=== PATIENT | male | born 1950 | race Caucasian/White ===

== ENCOUNTER → 2016-06-17 | Outpatient (CLI) | payer OTHER ==
[~2016-06-17] MED LIST: ASPI-461 PO; DILT240C48 PO; LOSA50TA6 PO
[2016-06-17 18:03] LABS: BASO % 0.2 %; BASO ABS # 0.02 K/uL (0-0.2); COMPLETE YES; EOS % 2.5 %; HEMATOCRIT 43.5 % (42-52); IG% 0.2 %; LYMPH % 21.3 %; MEAN CELL VOLUME 88.8 fL (80-100); MEAN CORPUSCULAR HEMOGLOBIN 30.8 pg (25-34); MEAN CORPUSCULAR HGB CONC 34.7 g/dl (32-36); MEAN PLATELET VOLUME 10.8 fL (7.4-10.4); MONO % 10.1 %; NEUT % 65.7 %; PLATELET COUNT 248 K/uL (130-400); WHITE BLOOD COUNT 8.94 K/uL (4.8-10.8)
[2016-06-17 18:36] LABS: ALT/SGPT 31 U/L (12-78); AST/SGOT 21 U/L (15-37); BLOOD UREA NITROGEN 21 mg/dl (7-18); BUN/CREATININE RATIO 16.1 (10-20); CALCIUM 8.9 mg/dl (8.5-10.1); CARBON DIOXIDE 28 mmol/L (21-32); CHLORIDE 107 mmol/L (98-107); GLUCOSE 100 mg/dl (70-99); POTASSIUM 3.9 mmol/L (3.5-5.1); SODIUM 142 mmol/L (136-145)
[2016-06-17 18:47] LABS: ALB/GLOB RATIO 1.1 (0.9-2); ALKALINE PHOSPHATASE 113 U/L (45-117); CHOLESTEROL 231 mg/dl (0-200); CHOLESTEROL/HDL RATIO 6.6; HDL CHOLESTEROL 35 mg/dl; LDL CHOLESTEROL CALCULATED 158 mg/dl; PROSTATE SPECIFIC ANTIGEN 0.416 ng/ml (0.000-4.000); TRIGLYCERIDES 191 mg/dl (0-150); VERY LOW DENSITY LIPOPROT CALC 38 mg/dl
== END | disposition home or self-care (01) ==
LOC: C.LABBC 13:42
PROVIDERS: ATTEND Physician Assistant Medical
DX: Z00.00 Encounter for general adult medical examination without abnormal findings (principal); I10 Essential (primary) hypertension

== ENCOUNTER → 2016-07-02 | Outpatient (CLI) | payer OTHER ==
--- NOTE | 2016-07-02 14:59 | DIAGNOSTIC IMAGING REPORT ---
RIGHT HIP STEROID INJECTION UNDER FLUOROSCOPIC GUIDANCE CLINICAL HISTORY: Degenerative joint disease. Steroid injection. PROCEDURE: The risks, benefits, and alternatives to the procedure were discussed with the patient. Written informed consent was obtained. The patient was placed supine on the fluoroscopy table, and a right hip injection was performed under fluoroscopic guidance. The area was prepped and draped in the usual sterile fashion. The skin and soft tissues anesthetized with local 1% lidocaine. The right hip joint was accessed utilizing a 22-gauge needle, and intra-articular positioning was confirmed by injecting a small volume of Optiray 300 under fluoroscopic guidance. Once intra-articular positioning was confirmed, the prescribed dosage of 2 cc of Celestone and 8 cc of 0.5% Marcaine was injected into the joint space. The procedure was well tolerated and without immediate complication. The patient left the department in satisfactory condition. FLUOROSCOPY TIME: 12 seconds. IMPRESSION: Successful steroid injection of the right hip under fluoroscopic guidance. Electronically signed by: Adryan George M.D. 07/02/2016 2:57 PM Dictated Date/Time: 07/02/2016 2:55 PM
== END | disposition home or self-care (01) ==
LOC: C.RADBC 13:37
PROVIDERS: ATTEND Orthopaedic Surgery
DX: M16.11 Unilateral primary osteoarthritis, right hip (principal)

== ENCOUNTER → 2016-09-11 | Outpatient (CLI) | payer OTHER ==
[2016-09-11 11:33] LABS: ESTIMATED AVERAGE GLUCOSE 126 mg/dl; HA1C FLAG Normal (Normal)
[2016-09-11 11:41] LABS: BLOOD UREA NITROGEN 19 mg/dl (7-18); GLUCOSE 116 mg/dl (70-99)
[2016-09-11 11:42] LABS: ALB/GLOB RATIO 1.1 (0.9-2); ALKALINE PHOSPHATASE 113 U/L (45-117); ALT/SGPT 35 U/L (12-78); AST/SGOT 21 U/L (15-37); CALCIUM 8.9 mg/dl (8.5-10.1); CARBON DIOXIDE 26 mmol/L (21-32); CHLORIDE 111 mmol/L (98-107); CHOLESTEROL 270 mg/dl (0-200); CHOLESTEROL/HDL RATIO 9.3; HDL CHOLESTEROL 29 mg/dl; LDL CHOLESTEROL CALCULATED 181 mg/dl; POTASSIUM 3.9 mmol/L (3.5-5.1); SODIUM 143 mmol/L (136-145); TRIGLYCERIDES 299 mg/dl (0-150); VERY LOW DENSITY LIPOPROT CALC 60 mg/dl
[2016-09-11 15:08] LABS: LYME DISEASE AB IGG NEG (NEG); LYME DISEASE AB IGM NEG (NEG)
== END | disposition home or self-care (01) ==
LOC: C.LABBC 07:21
PROVIDERS: ATTEND Physician Assistant Medical
DX: Z00.00 Encounter for general adult medical examination without abnormal findings (principal); R73.9 Hyperglycemia, unspecified; E78.5 Hyperlipidemia, unspecified

== ENCOUNTER → 2017-06-12 | Outpatient (CLI) | payer OTHER ==
[2017-06-12 11:22] LABS: ALBUMIN 3.9 gm/dl (3.4-5.0); ALT/SGPT 32 U/L (12-78); AST/SGOT 19 U/L (15-37); BLOOD UREA NITROGEN 18 mg/dl (7-18); CALCIUM 9.1 mg/dl (8.5-10.1); CARBON DIOXIDE 27 mmol/L (21-32); CHOLESTEROL 234 mg/dl (0-200); CREATININE 1.29 mg/dl (0.60-1.40); GLUCOSE 110 mg/dl (70-99); SODIUM 140 mmol/L (136-145)
[2017-06-12 11:30] LABS: ALKALINE PHOSPHATASE 107 U/L (45-117); LDL CHOLESTEROL CALCULATED 157 mg/dl; TOTAL PROTEIN 8.1 gm/dl (6.4-8.2)
[2017-06-12 11:56] LABS: HEMOGLOBIN A1C 5.8 % (4.5-5.6)
== END | disposition home or self-care (01) ==
LOC: C.LABBC 07:19
PROVIDERS: ATTEND Internal Medicine
DX: R73.9 Hyperglycemia, unspecified (principal); E78.5 Hyperlipidemia, unspecified; E78.6 Lipoprotein deficiency; E88.81 Metabolic syndrome and other insulin resistance; R00.0 Tachycardia, unspecified; I11.9 Hypertensive heart disease without heart failure

== ENCOUNTER 2019-07-14 16:46 | Observation (INO) ==
[2019-07-14] MEDS ORDERED: ONDANSETRON INJ 2 MG/ML 2 ML VIAL IV STA (17:10)
[2019-07-14] MEDS ORDERED: HYDROmorphone INJ 0.5 MG/0.5 ML SYR IV STA (17:10)
[2019-07-14] MEDS ORDERED: SODIUM CHLORIDE 0.9% 1000ML 1,000 ML IV SCH (17:15)
[2019-07-14 17:19] LABS: Appearance Urine Clear (Clear); Bilirubin Urine Negative (Negative); Blood Urine Negative (Negative); Color Urine Yellow; Glucose Urine UA Negative (Negative); Ketones Urine Negative (Negative); Leukocyte Esterase Urine Negative (Negative); Nitrite Urine Negative (Negative); Protein Urine Negative (Negative); Specific Gravity Urine 1.025 (1.000-1.030); Urobilinogen Urine Negative (Negative); pH Urine 6.5 (4.5-7.5)
[2019-07-14 18:02] LABS: Basophils # (auto) 0.01 K/uL (0-0.2); Basophils % (auto) 0.1 %; Eosinophils # (auto) 0.16 K/uL (0-0.5); Eosinophils % (auto) 1.1 %; Hematocrit (blood only) 43.3 % (42-52); Hemoglobin 14.7 g/dL (14.0-18.0); Immature Granulocytes # (auto) 0.04 K/uL (0.00-0.02); Immature Granulocytes % (auto) 0.3 %; Lymphocytes # (auto) 1.21 K/uL (1.2-3.4); Lymphocytes % (auto) 8.3 %; Mean Corpuscular Hemoglobin 30.2 pg (25-34); Mean Corpuscular Hgb Conc 33.9 g/dL (32-36); Mean Corpuscular Volume 88.9 fL (80-100); Mean Platelet Volume 9.8 fL (7.4-10.4); Monocytes # (auto) 1.39 K/uL (0.11-0.59); Monocytes % (auto) 9.6 %; Neutrophils % (auto) 80.6 %; Platelet Count 240 K/uL (130-400); RDW Coefficient of Variation 13.7 % (11.5-14.5); RDW Standard Deviation 44.2 fL (36.4-46.3); Red Blood Count 4.87 M/uL (4.7-6.1); White Blood Count 14.51 K/uL (4.8-10.8)
[2019-07-14 18:20] LABS: Albumin Level 3.8 gm/dl (3.4-5.0); BUN Creatinine Ratio 10.7 (10-20); Calcium 9.1 mg/dl (8.5-10.1); Creatinine Clr Calc Pharmacy 38.8 ml/min; Est GFR (Non-African American) 33.7; Potassium 3.8 mmol/L (3.5-5.1)
[2019-07-14 18:22] LABS: Bilirubin,Total 0.4 mg/dl (0.2-1); Total Protein 7.8 gm/dl (6.4-8.2)
--- NOTE | 2019-07-14 18:30 | XRay Report ---
KUB HISTORY: Follow up study in a patient with right ureteral calculus R URETERAL STONE COMPARISON: CT abdomen and pelvis 07/13/2019 FINDINGS: The bowel gas pattern is non-obstructive. There is no organomegaly. Renal shadows are obsc ured by bowel gas. Previously noted punctate right nephrolithiasis not identified. Additionally, the previously noted 4 mm calculus of the right ureterovesicular junction is not definitively seen. No pn eumoperitoneum or pneumatosis. Right hip total joint arthroplasty. Degenerative changes of the left h ip and spine. No fracture. IMPRESSION: Limited study secondary to obscuring bowel gas. The previously noted right nephrolithiasis and distal right ureteral calculus are not identified. ACT 112: Negative or not required by law. The above report was generated using voice recognition software. It may contain grammatical, syntax o r spelling errors. Electronically signed by: Sean Chow M.D. 07/14/2019 6:29 PM
--- NOTE | 2019-07-14 19:45 | History & Physical Report ---
Date of Service July 14, 2019 Assessment & Plan (1) Right kidney stone: Patient presents with pain similar to renal colic experienced yesterday. Pain is in the same location as before. Also with nausea, increase in leukocytosis, BUN and Cr. KUB performed and do not clearly see the stone, however, suspect that it is still present and causing symptoms. UA does not suggest infection -Observation to medical floor -IVF, Zofran and Dilaudid PRN -Flomax 0.4mg po daily -Strain urine -IVF -Urology consultation - possible lithotripsy in AM, will keep patient NPO Present on Admission?: Yes (2) JAREK (acute kidney injury): BUN=21, Cr=1.94 from 20 and 1.33, respectively. Patient reports adequate UOP, electrolytes are within normal limits. -NSS at 125mL/hr x 2 L -Repeat BMP in AM -Avoid nephrotoxic agents, renal dosing where needed Present on Admission?: Yes (3) Acid reflux disease with ulcer: Chronic. Stable -Continue Protonix 40mg po daily Present on Admission?: Yes (4) Dyslipidemia: Chronic. Stable -Continue Crestor 5mg po daily Present on Admission?: Yes (5) HTN (hypertension): Chronic. Stable, XV=135/74 currently -Continue Metoprolol and Diltiazem -Hold Telmisartan for now -Continue to monitor F/E/N - NSS at 125mL/hr x 2 liters, monitor electrolytes and replete as needed, Heart healthy diet as tolerated, NPO after midnight for possible lithotripsy in AM Ppx- SCDs Code - Full Dispo - Observation to medical floor Present on Admission?: Yes Admission and Anticipated Discharge Date Admission Date: 07/14/19 Anticipated date of discharge: 07/15/19 History of Present Illness Chief Complaint: Abdominal pain Primary Care Provider: Curt Oquendo MD Patient is a 69yo C male with history of HTN/HLP/CKD/GERD. He was seen in the ER yesterday with complaint of right lower quadrant abdominal pain, found to have a 4mm obstructing calculus at the right vesicoureteral junction with mild to moderate right hydroureteronephrosis. Patient was given NSS, Dilaudid and Zofran, Toradol and Flexeril with resolution of symptoms therefore he was discharged home. Patient felt well throughout the night, however, this morning he had a recurrence of his pain. Severe, 8-9/10 in the RLQ. He also has some mild nausea and a headache. No fevers/chills/dysuria/back pain. No diarrhea/CP/cough/SOB. No additional complaints at this time. ER Course: DIlaudid, Zofran, NSS Allergies Allergy/AdvReac Type Severity Reaction Status Date / Time No Known Allergies Allergy Verified 07/14/19 17:31 Home Medications Home Medications Medication Instructions Recorded Confirmed Type aspirin 81 mg tablet,delayed 81 mg PO DAILY #30 tab 09/01/18 07/14/19 Rx release metoprolol succinate 25 mg 25 mg PO DAILY #90 tab 09/01/18 07/14/19 Rx tablet,extended release 24 hr pantoprazole 40 mg tablet,delayed 40 mg PO DAILY #30 tab 09/01/18 07/14/19 Rx release amoxicillin 500 mg capsule 2,000 mg PO DIRECTED PRN cap 01/05/19 07/14/19 History diltiazem HCl 300 mg 300 mg PO DAILY #90 cap 03/21/19 07/14/19 Rx capsule,extended release 24 hr rosuvastatin 5 mg tablet 5 mg PO DAILY #90 tab 07/12/19 07/14/19 Rx telmisartan 80 mg PO DAILY 07/13/19 07/14/19 History Past Med/Surg History Social History Preferred Language: Slovenian Communication Ability: Effective Visual Impairment: No Limitations Hearing Ability: Normal Anesthetic Assistant Required: No marital status: Current Living Situation: Spouse current occupational status: retired Feels Safe at Home: Yes Smoking Status: Never smoker Hx Alcohol Use: Yes Alcohol type: beer and wine Alcohol Intake Frequency: Holidays/Special Occasions Hx Substance Use: No Childhood Exposure to Second-Hand Smoke: No Dental Care, Regularly: Yes Physical Activity Frequency: Daily Seatbelt Use: always Sunscreen Use: Yes Review of Systems Review of Systems: All systems reviewed & are unremarkable except as noted in HPI & below Physical Exam Physical Exam: General: patient resting comfortably, NAD, non-toxic in appear ance, AA&O x 4 Skin: warm, dry, intact, no rashes or lesions HEENT: NC/AT, PERRL, EOMI, anicteric sclera, conjunctiva without injection, external ear normal to inspection and nontender, nares patent, moist mucus membranes, dentition intact, no oropharyngeal lesions, neck supple, trachea midline, no LAD, no thyromegaly, no JVD Heart: +S1/S2, regular, no m/r/g Lungs: equal air entry bilaterally, no rales/rhonchi/wheezes Abd: +BS, soft, NT/ND, no masses/organomegaly/ascites Ext: warm, 2+ pulses in UE/LE bilaterally, no clubbing/cyanosis or edema Neuro: nonfocal, patient AA&O x 4, speech intact, no facial droop, moving all extremities on command with equal strength 5/5 Results & Data Results & Data ([facility]) Vital Signs (Past 12 Hours) Vital Signs Temp Pulse Resp BP Pulse Ox 07/14/19 19:30 81 18 128/96 96 07/14/19 19:00 85 18 136/75 95 07/14/19 18:30 79 21 137/75 93 07/14/19 18:00 85 20 151/74 H 93 07/14/19 17:38 75 15 150/88 H 95 07/14/19 17:20 92 07/14/19 16:51 36.9 C 92 H 18 149/87 H 97 Laboratory Results Lab Results 07/14/19 07/14/19 07/14/19 Range/Units 17:02 17:41 17:41 WBC 14.51 H (4.8-10.8) K/uL RBC 4.87 (4.7-6.1) M/uL Hgb 14.7 (14.0-18.0) g/dL Hct 43.3 (42-52) % MCV 88.9 (80-100) fL MCH 30.2 (25-34) pg MCHC 33.9 (32-36) g/dL RDW Std Deviation 44.2 (36.4-46.3) fL RDW Coeff of [place] 13.7 (11.5-14.5) % Plt Count 240 (130-400) K/uL MPV 9.8 (7.4-10.4) fL Immature Gran % (Auto) 0.3 % Neut % (Auto) 80.6 % Lymph % (Auto) 8.3 % [place] % (Auto) 9.6 % Eos % (Auto) 1.1 % Baso % (Auto) 0.1 % Immature Gran # (Auto) 0.04 H (0.00-0.02) K/uL Neut # (Auto) 11.70 H (1.4-6.5) K/uL Lymph # (Auto) 1.21 (1.2-3.4) K/uL [place] # (Auto) 1.39 H (0.11-0.59) K/uL Eos # (Auto) 0.16 (0-0.5) K/uL Baso # (Auto) 0.01 (0-0.2) K/uL Sodium 137 (136-145) mmol/L Potassium 3.8 (3.5-5.1) mmol/L Chloride 109 H (98-107) mmol/L Carbon Dioxide 25 (21-32) mmol/L Anion Gap 3.0 (3-11) BUN 21 H (7-18) mg/dl Creatinine 1.96 H D (0.6-1.4) mg/dl Est Cr Clr Drug Dosing 38.8 ml/min Est GFR ( Amer) 39.0 Est GFR (Non-Af Amer) 33.7 BUN/Creatinine Ratio 10.7 (10-20) Glucose 102 H (70-99) mg/dl Calcium 9.1 (8.5-10.1) mg/dl Total Bilirubin 0.4 (0.2-1) mg/dl AST 21 (15-37) U/L ALT 32 (12-78) U/L Alkaline Phosphatase 112 (45-117) U/L Total Protein 7.8 (6.4-8.2) gm/dl Albumin 3.8 (3.4-5.0) gm/dl Globulin 4.0 (2.5-4.0) gm/dl Albumin/Globulin Ratio 1.0 (0.9-2) Lipase 109 (73-393) U/L Urine Color Yellow Urine Appearance Clear (Clear) Urine pH 6.5 (4.5-7.5) Ur Specific [place] 1.025 (1.000-1.030) Urine Protein Negative (Negative) Urine Glucose (UA) Negative (Negative) Urine Ketones Negative (Negative) Urine Blood Negative (Negative) Urine Nitrite Negative (Negative) Urine Bilirubin Negative (Negative) Urine Urobilinogen Negative (Negative) Ur Leukocyte Esterase Negative (Negative) Diagnostic Findings KUB HISTORY: Follow up study in a patient with right ureteral calculus R URETERAL STONE COMPARISON: CT abdomen and pelvis 07/13/2019 FINDINGS: The bowel gas pattern is non-obstructive. There is no organomegaly. Renal shadows are obscured by bowel gas. Previously noted punctate right nephrolithiasis not identified. Additionally, the previously noted 4 mm calculus of the right ureterovesicular junction is not definitively seen. No pneumoperitoneum or pneumatosis. Right hip total joint arthroplasty. Degenerative changes of the left hip and spine. No fracture. IMPRESSION: Limited study secondary to obscuring bowel gas. The previously noted right nephrolithiasis and distal right ureteral calculus are not identified. ACT 112: Negative or not required by law. The above report was generated using voice recognition software. It may contain grammatical, syntax or spelling errors. Electronically signed by: Sean Chow M.D. 07/14/2019 6:29 PM Dictated: 07/14/[id number] Transcribed: 07/14/191826 CT SCAN OF THE ABDOMEN AND PELVIS WITH IV CONTRAST - STUDY DONE ON 4/22/20 CLINICAL HISTORY: Right lower quadrant abdominal pain. COMPARISON STUDY: Abdominal CT dated 09/29/2011. TECHNIQUE: Following the IV administration of 93 cc of Optiray 320, CT scan of the abdomen and pelvis is performed from the lung bases to the proximal femora. Images are reviewed in the axial, sagittal, and coronal planes. IV contrast was administered without complication. A dose lowering technique was utilized adhering to the principles of ALARA. CT DOSE: 958.68 mGycm FINDINGS: Lung bases: The heart is mildly enlarged and without pericardial effusion. There are coronary artery calcifications. A tiny hiatal hernia is noted. The lung bases are clear. Liver: The contrast-enhanced liver is normal in size, contour, and attenuation. There is no intrahepatic biliary ductal dilatation. The hepatic veins and portal veins are patent. Gallbladder: Unremarkable. Spleen: Normal in size and attenuation. Pancreas: Unremarkable. Adrenal glands: Unremarkable. Kidneys: The contrast enhanced kidneys demonstrate cortical atrophy. The right kidney is mildly edematous and there is perinephric stranding. There is a 4 mm obstructing calculus at the right vesicoureteral junction seen on image #406. This causes mild to moderate right hydroureteronephrosis. There are at least 3 additional nonobstructing right renal calculi which measure up to 3 mm. There are least 2 nonobstructing calculi in the left upper pole measuring up to 6 mm. No hydronephrosis is seen on the left. Cortical enhancement the right kidney is slightly heterogeneous, likely secondary to hydronephrosis. Parapelvic cysts in the left kidney measure up to 3.1 cm. Abdominal vasculature: There is moderate to advanced atherosclerotic calcification and mild ectasia of the abdominal aorta. Bowel: There is no bowel obstruction. There is moderate colonic diverticulosis without CT evidence of acute diverticulitis. Mild fecal retention is seen throughout the colon there is a large duodenal diverticulum. The appendix is well-visualized and normal. Peritoneum: There is no intraperitoneal free air or abdominal ascites. Lymphadenopathy: None. Pelvic viscera: Evaluation of the pelvis is degraded by streak artifact from a right hip arthroplasty. The prostate gland is enlarged and heterogeneous noting median lobe hypertrophy. The bladder wall is thickened and trabeculated indicating chronic outlet obstruction. There is a fat-containing left inguinal hernia. Findings suggest previous right inguinal herniorrhaphy. Skeletal structures: The skeletal structures are osteopenic. Mild lumbosacral spondylosis is observed. There are bilateral pars defects with advanced disc space narrowing and 9 mm anterolisthesis at L5-S1. No lytic or blastic lesions are seen. A right hip arthroplasty is in place. IMPRESSION: 1. There is a 4 mm obstructing calculus at the right vesicoureteral junction. Th is causes mild to moderate right hydroureteronephrosis. 2. There is heterogeneous enhancement of the right kidney, likely related to obstruction/hydronephrosis. Correlate clinically and with urinalysis for evidence of superimposed infection. 3. Additional bilateral nonobstructing renal calculi as above. 4. Moderate colonic diverticulosis without CT evidence of acute diverticulitis. 5. Fat-containing left inguinal hernia. 6. Additional findings as above. ACT 112: Negative or not required by law. Electronically signed by: Adryan George M.D. 07/13/2019 5:30 PM Dictated: 07/13/19 172 Transcribed: 07/13/191721 Code Status & VTE Plan Code Status FULL VTE Prophylaxis Plan VTE Prophylaxis will be ordered: Yes PG Care Time/CCT Total # of Minutes Spent Total Time Spent with Patient: Total time spent is greater than 50% in coordination of care (as documented) at patient's floor/unit and/or counseling patient: Coding Level of Care Code 76187 OBS Care - Level 3 Diagnoses Right kidney stone N20.0 JAREK (acute kidney injury) N17.9 Acid reflux disease with ulcer K21.9 Dyslipidemia E78.5 HTN (hypertension) I10 Hypertension type: essential hypertension (1) HTN (hypertension) Hypertension type: essential hypertension Qualified Code(s): I10 - Essential (primary) hypertension
[2019-07-14] MEDS ORDERED: DOCUSATE SODIUM 100 MG CAP PO PRN (20:32)
[2019-07-14] MEDS ORDERED: ONDANSETRON INJ 2 MG/ML 2 ML VIAL IV PRN (20:32)
[2019-07-14] MEDS ORDERED: HYDROmorphone INJ 0.5 MG/0.5 ML SYR IV PRN (20:32)
[2019-07-14] MEDS ORDERED: TAMSULOSIN HCL 0.4 MG CAP PO ONE (20:32)
[2019-07-14] MEDS ORDERED: ACETAMINOPHEN 325 MG TAB PO PRN (20:32)
[2019-07-14 20:48] LABS: Magnesium 2.3 mg/dl (1.8-2.4)
[2019-07-14] MEDS: SODIUM CHLORIDE 0.9% 1000ML 1,000 ML IV SCH (21:23)
--- NOTE | 2019-07-15 00:28 | Emergency Department Note ---
History of Present Illness General Chief complaint: Kidney Stone Stated complaint: KIDNEY STONES, HERE YESTERDAY Source: patient Mode of arrival: ambulatory Limitations: no limitations History of Present Illness Provider complaint: Right-sided abdominal pain Onset (ago): day(s) 2 Location: abdomen Radiation: back Severity: moderate Pain Consistency: + colicky Maximum Pain Intensity: 3 Exacerbated By: + none This patient is a 69-year-old male who presents to the emergency department with complaints of right lower quadrant abdominal pain. The patient was evaluated in the emergency department yesterday and found to have a 4 mm distal right ureteral calculus. Patient's symptoms greatly improved after IV fluids and analgesia. UA was negative. Patient was discharged and was using Tylenol and ibuprofen for pain management. Patient spoke with his PCP today who advised an appointment with urology may be in the distant future due to the COVID pandemic. Patient states the pain was manageable for most of the day until later this evening. The Tylenol and ibuprofen were no longer controlling his symptoms. He denies any fever and states he has been nauseated for most of the day. Home Medications Home Medications Medication Instructions Recorded Confirmed Type aspirin 81 mg tablet,delayed 81 mg PO DAILY #30 tab 09/01/18 07/14/19 Rx release metoprolol succinate 25 mg 25 mg PO DAILY #90 tab 09/01/18 07/14/19 Rx tablet,extended release 24 hr pantoprazole 40 mg tablet,delayed 40 mg PO DAILY #30 tab 09/01/18 07/14/19 Rx release amoxicillin 500 mg capsule 2,000 mg PO DIRECTED PRN cap 01/05/19 07/14/19 History diltiazem HCl 300 mg 300 mg PO DAILY #90 cap 03/21/19 07/14/19 Rx capsule,extended release 24 hr rosuvastatin 5 mg tablet 5 mg PO DAILY #90 tab 07/12/19 07/14/19 Rx telmisartan 80 mg PO DAILY 07/13/19 07/14/19 History Allergies Allergy/AdvReac Type Severity Reaction Status Date / Time No Known Allergies Allergy Verified 07/14/19 17:31 Past Med/Surg History Medical History Acid reflux disease with ulcer (Chronic) CKD (chronic kidney disease) (Chronic) Dyslipidemia (Chronic) HTN (hypertension) (Chronic) Hyperglycemia (Chronic) Low HDL (under 40) (Chronic) LVH (left ventricular hypertrophy) (Chronic) Metabolic syndrome (Chronic) Surgical History H/O inguinal hernia repair History of arthroplasty of right hip Family History Mother Cancer Social History Preferred Language: Korean Communication Ability: Effective Visual Impairment: No Limitations Hearing Ability: Normal Redipper Required: No Beliefs That Will Affect Care: None marital status: Current Living Situation: Spouse current occupational status: retired Other Information That Helps Us Care for You: No Feels Safe at Home: Yes Safety Concerns: Feels Safe At This Time Smoking Status: Never smoker Do You Dip or Chew Tobacco: No ; Hx Alcohol Use: Yes Alcohol type: beer and wine Alcohol Intake Frequency: Holidays/Special Occasions Hx Substance Use: No Childhood Exposure to Second-Hand Smoke: No Dental Care, Regularly: Yes Physical Activity Frequency: Daily Seatbelt Use: always Sunscreen Use: Yes Review of Systems See HPI for pertinent positives & negatives. and A total of 10 systems reviewed and were otherwise negative Physical Exam Vital Signs Vital Signs - 24 hr 07/14/19 16:51 07/14/19 17:20 07/14/19 17:38 Temperature 36.9 C Temperature Source Oral Pulse Rate 92 H 75 Pulse Rate from SpO2 Sensor Respiratory Rate 18 15 Respiratory Effort / Characteristics Non-Labored Respiratory Depth Normal Blood Pressure 149/87 H 150/88 H Blood Pressure Mean 107 109 Pulse Oximetry 97 92 95 Oxygen Delivery Method Room Air Room Air Sepsis Recent Fever Within 48 Hours No Sepsis New/Unexplained Change in Mental Status No Sepsis Action Taken by Nursing No Action Required 07/14/19 18:00 07/14/19 18:30 07/14/19 19:00 Temperature Temperature Source Pulse Rate 85 79 85 Pulse Rate from SpO2 Sensor 84 Respiratory Rate 20 21 18 Respiratory Effort / Characteristics Respiratory Depth Blood Pressure 151/74 H 137/75 136/75 Blood Pressure Mean 96 96 93 Pulse Oximetry 93 93 95 Oxygen Delivery Method Sepsis Recent Fever Within 48 Hours Sepsis New/Unexplained Change in Mental Status Sepsis Action Taken by Nursing 07/14/19 19:30 Temperature Temperature Source Pulse Rate 81 Pulse Rate from SpO2 Sensor Respiratory Rate 18 Respiratory Effort / Characteristics Respiratory Depth Blood Pressure 128/96 Blood Pressure Mean 98 Pulse Oximetry 96 Oxygen Delivery Method Sepsis Recent Fever Within 48 Hours Sepsis New/Unexplained Change in Mental Status Sepsis Action Taken by Nursing Vital signs reviewed. General: Well-appearing 69-year-old male, in no significant distress. HEENT: No scleral icterus, PERRLA, neck supple. Atraumatic. Cardiovascular: Regular rate and rhythm, no extra sounds. Pulmonary: Clear to auscultation bilaterally, normal work of breathing. Abdomen: Soft, tender to palpation of the right mid abdomen, nondistended, positive bowel sounds. Musculoskeletal: Atraumatic, no peripheral edema. Neurologic: Patient awake alert and oriented x 3 Skin: Warm, dry, no rash Course Administered Medications Sodium Chloride (Nss 1000ml) 1,000 mls @ 125 mls/hr IV .Q8H ROSE MARIE Stop: 07/15/19 12:31 Last Infusion: 07/14/19 22:08 Dose: 125 mls/hr Documented by: [id number] Admin: 07/14/19 21:23 Dose: 125 mls/hr Documented by: [id number] Discontinued Medications Hydromorphone HCl (Dilaudid) 0.5 mg IV NOW STA Stop: 07/14/19 17:11 Last Admin: 07/14/19 17:33 Dose: 0.5 mg Documented by: [id number] Sodium Chloride (Nss 1000ml) 1,000 mls @ 999 mls/hr IV .Q1H1M ROSE MARIE Stop: 07/14/19 18:15 Last Infusion: 07/14/19 18:29 Dose: 0 mls/hr Documented by: [id number] Admin: 07/14/19 17:30 Dose: 999 mls/hr Documented by: [id number] Ondansetron HCl (Zofran) 4 mg IV NOW STA Stop: 07/14/19 17:11 Last Admin: 07/14/19 17:34 Dose: 4 mg Documented by: [id number] Tamsulosin HCl (Flomax) 0.4 mg PO NOW ONE Stop: 07/14/19 20:33 Last Admin: 07/14/19 21:22 Dose: 0.4 mg Documented by: [id number] Medical Decision Making Differential Diagnosis Differential diagnosis: Etiologies such as shingles, pyelonephritis/UTI, renal colic, appendicitis, diverticulitis, mesenteric ischemia, torsion, aortic pathology, infections, inflammatory bowel disease, bowel obstruction, PUD, biliary pathology, as well as others were entertained. Medical Records Attestation: I reviewed the patient's medical records. Home Medications Current Medication List: was personally reviewed by me Laboratory Data Attestation: I reviewed the patient's lab results. Result diagrams: 07/14/19 17:41 07/14/19 17:41 Lab Results 07/14/19 07/14/19 07/14/19 Range/Units 17:02 17:41 17:41 WBC 14.51 H (4.8-10.8) K/uL RBC 4.87 (4.7-6.1) M/uL Hgb 14.7 (14.0-18.0) g/dL Hct 43.3 (42-52) % MCV 88.9 (80-100) fL MCH 30.2 (25-34) pg MCHC 33.9 (32-36) g/dL RDW Std Deviation 44.2 (36.4-46.3) fL RDW Coeff of Augustus 13.7 (11.5-14.5) % Plt Count 240 (130-400) K/uL MPV 9.8 (7.4-10.4) fL Immature Gran % (Auto) 0.3 % Neut % (Auto) 80.6 % Lymph % (Auto) 8.3 % Rush % (Auto) 9.6 % Eos % (Auto) 1.1 % Baso % (Auto) 0.1 % Immature Gran # (Auto) 0.04 H (0.00-0.02) K/uL Neut # (Auto) 11.70 H (1.4-6.5) K/uL Lymph # (Auto) 1.21 (1.2-3.4) K/uL Rush # (Auto) 1.39 H (0.11-0.59) K/uL Eos # (Auto) 0.16 (0-0.5) K/uL Baso # (Auto) 0.01 (0-0.2) K/uL Sodium 137 (136-145) mmol/L Potassium 3.8 (3.5-5.1) mmol/L Chloride 109 H (98-107) mmol/L Carbon Dioxide 25 (21-32) mmol/L Anion Gap 3.0 (3-11) BUN 21 H (7-18) mg/dl Creatinine 1.96 H D (0.6-1.4) mg/dl Est Cr Clr Drug Dosing 38.8 ml/min Est GFR ( Amer) 39.0 Est GFR (Non-Af Amer) 33.7 BUN/Creatinine Ratio 10.7 (10-20) Glucose 102 H (70-99) mg/dl Calcium 9.1 (8.5-10.1) mg/dl Phosphorus (2.5-4.9) mg/dl Magnesium (1.8-2.4) mg/dl Total Bilirubin 0.4 (0.2-1) mg/dl AST 21 (15-37) U/L ALT 32 (12-78) U/L Alkaline Phosphatase 112 (45-117) U/L Total Protein 7.8 (6.4-8.2) gm/dl Albumin 3.8 (3.4-5.0) gm/dl Globulin 4.0 (2.5-4.0) gm/dl Albumin/Globulin Ratio 1.0 (0.9-2) Lipase 109 (73-393) U/L Urine Color Yellow Urine Appearance Clear (Clear) Urine pH 6.5 (4.5-7.5) Ur Specific [place] 1.025 (1.000-1.030) Urine Protein Negative (Negative) Urine Glucose (UA) Negative (Negative) Urine Ketones Negative (Negative) Urine Blood Negative (Negative) Urine Nitrite Negative (Negative) Urine Bilirubin Negative (Negative) Urine Urobilinogen Negative (Negative) Ur Leukocyte Esterase Negative (Negative) 07/14/19 Range/Units 17:41 WBC (4.8-10.8) K/uL RBC (4.7-6.1) M/uL Hgb (14.0-18.0) g/dL Hct (42-52) % MCV (80-100) fL MCH (25-34) pg MCHC (32-36) g/dL RDW Std Deviation (36.4-46.3) fL RDW Coeff of Augustus (11.5-14.5) % Plt Count (130-400) K/uL MPV (7.4-10.4) fL Immature Gran % (Auto) % Neut % (Auto) % Lymph % (Auto) % Rush % (Auto) % Eos % (Auto) % Baso % (Auto) % Immature Gran # (Auto) (0.00-0.02) K/uL Neut # (Auto) (1.4-6.5) K/uL Lymph # (Auto) (1.2-3.4) K/uL Rush # (Auto) (0.11-0.59) K/uL Eos # (Auto) (0-0.5) K/uL Baso # (Auto) (0-0.2) K/uL Sodium (136-145) mmol/L Potassium (3.5-5.1) mmol/L Chloride (98-107) mmol/L Carbon Dioxide (21-32) mmol/L Anion Gap (3-11) BUN (7-18) mg/dl Creatinine (0.6-1.4) mg/dl Est Cr Clr Drug Dosing ml/min Est GFR ( Amer) Est GFR (Non-Af Amer) BUN/Creatinine Ratio (10-20) Glucose (70-99) mg/dl Calcium (8.5-10.1) mg/dl Phosphorus 3.0 (2.5-4.9) mg/dl Magnesium 2.3 (1.8-2.4) mg/dl Total Bilirubin (0.2-1) mg/dl AST (15-37) U/L ALT (12-78) U/L Alkaline Phosphatase (45-117) U/L Total Protein (6.4-8.2) gm/dl Albumin (3.4-5.0) gm/dl Globulin (2.5-4.0) gm/dl Albumin/Globulin Ratio (0.9-2) Lipase (73-393) U/L Urine Color Urine Appearance (Clear) Urine pH (4.5-7.5) Ur Specific [place] (1.000-1.030) Urine Protein (Negative) Urine Glucose (UA) (Negative) Urine Ketones (Negative) Urine Blood (Negative) Urine Nitrite (Negative) Urine Bilirubin (Negative) Urine Urobilinogen (Negative) Ur Leukocyte Esterase (Negative) Imaging Data Radiologist's Impression: KUB HISTORY: Follow up study in a patient with right ureteral calculus R URETERAL STONE COMPARISON: CT abdomen and pelvis 07/13/2019 FINDINGS: The bowel gas pattern is non-obstructive. There is no organomegaly. Renal shadows are obscured by bowel gas. Previously noted punctate right n ephrolithiasis not identified. Additionally, the previously noted 4 mm calculus of the right ureterovesicular junction is not definitively seen. No pneumoperitoneum or pneumatosis. Right hip total joint arthroplasty. Degenerative changes of the left hip and spine. No fracture. IMPRESSION: Limited study secondary to obscuring bowel gas. The previously noted right nephrolithiasis and distal right ureteral calculus are not identified. ACT 112: Negative or not required by law. The above report was generated using voice recognition software. It may contain grammatical, syntax or spelling errors. Electronically signed by: Sean Chow M.D. 07/14/2019 6:29 PM Dictated: 07/14/191826 Transcribed: 07/14/191826 Blood Pressure Blood Pressure Findings: Normal blood pressure Blood Pressure Disposition: Referred to patients primary care provider MDM Narrative An order for cardiac monitoring was placed and the patient is found to be in a normal sinus rhythm at 75 bpm. This patient was evaluated and appeared to be in no significant distress. IV access was obtained and laboratory work was drawn. Patient was hydrated with normal saline solution, given IV Dilaudid, IV Zofran for his discomfort. KUB was performed and the ureteral calculus is not visualized. Patient's laboratory work reveals a leukocytosis at 14.5 with a creatinine of 1.96 which is elevated when compared to just 24 hours ago. The patient does remain afebrile and the UA is clear. Given the failure of outpatient management and the difficulty in establishing follow-up, the patient will be evaluated by the hospitalist service for further management. Dr. Reynolds of the urology service was consulted as the patient prefers to be evaluated by the [facility] physician group. [facility] was consulted for further management. Impression & Plan Calculus of distal right ureter, Intractable abdominal pain, Acute kidney insufficiency Discharge Plan Visit Data *Final* Discharge Date/Time: 07/14/19 20:09 Chief Complaint: Kidney Stone Stated Complaint: KIDNEY STONES, HERE YESTERDAY ED Provider: Jamee Lubin Discharge Problem: Calculus of distal right ureter, Intractable abdominal pain, Acute kidney insufficiency Patient Disposition: Admitted As Inpatient Discharge Instructions Interventions: ED Discharge Assessment Last Done: 07/14/19 20:09
[2019-07-15] MEDS: SODIUM CHLORIDE 0.9% 1000ML 1,000 ML IV SCH (05:07)
[2019-07-15 06:09] LABS: Basophils # (auto) 0.01 K/uL (0-0.2); Basophils % (auto) 0.1 %; Eosinophils # (auto) 0.04 K/uL (0-0.5); Eosinophils % (auto) 0.3 %; Hematocrit (blood only) 37.8 % (42-52); Hemoglobin 12.9 g/dL (14.0-18.0); Immature Granulocytes # (auto) 0.03 K/uL (0.00-0.02); Immature Granulocytes % (auto) 0.2 %; Lymphocytes # (auto) 1.58 K/uL (1.2-3.4); Lymphocytes % (auto) 12.1 %; Mean Corpuscular Hemoglobin 30.7 pg (25-34); Mean Corpuscular Hgb Conc 34.1 g/dL (32-36); Mean Platelet Volume 9.8 fL (7.4-10.4); Monocytes # (auto) 1.53 K/uL (0.11-0.59); Monocytes % (auto) 11.7 %; Neutrophils # (auto) 9.88 K/uL (1.4-6.5); Neutrophils % (auto) 75.6 %; Platelet Count 209 K/uL (130-400); RDW Coefficient of Variation 13.7 % (11.5-14.5); RDW Standard Deviation 45.3 fL (36.4-46.3); White Blood Count 13.07 K/uL (4.8-10.8)
[2019-07-15 06:41] LABS: BUN Creatinine Ratio 12.9 (10-20); Calcium 8.6 mg/dl (8.5-10.1); Creatinine Clr Calc Pharmacy 61.4 ml/min; Est GFR (African American) 67.8; Est GFR (Non-African American) 58.5; Potassium 3.9 mmol/L (3.5-5.1)
--- NOTE | 2019-07-15 07:34 | Urology Consultation ---
Date of Consultation July 15, 2019 Assessment & Plan (1) Right kidney stone: Right UVJ stone with subsequent JAREK No stone passage yet Symptoms waxing and waning Discussed options We will plan for emergent surgical intervention in the form of cystoscopy, right ureteroscopy, laser lithotripsy and possible stent placement Risks, benefits, alternatives discussed I believe he needs to go to surgery given the recurrent episodes of pain and AK Ithis cannot be delayed until after the coronavirus crisis History of Present Illness Attending Physician: Darius Paredes MD History of Present Illness 69-year-old gentleman who is presented through the emergency room secondary to a distal right ureteral calculus Imaging reviewedthis stone appears to be crusting into the bladder He reports some relief with pain medications overnight, no stone passage yet Overall health is been quite good He has had an elevated creatinine since arrival He is very concerned about recurrent flares of pain and would like to move forward with surgery if possible Allergies Allergy/AdvReac Type Severity Reaction Status Date / Time No Known Allergies Allergy Verified 07/14/19 17:31 Home Medications Home Medications Medication Instructions Recorded Confirmed Type aspirin 81 mg tablet,delayed 81 mg PO DAILY #30 tab 09/01/18 07/14/19 Rx release metoprolol succinate 25 mg 25 mg PO DAILY #90 tab 09/01/18 07/14/19 Rx tablet,extended release 24 hr pantoprazole 40 mg tablet,delayed 40 mg PO DAILY #30 tab 09/01/18 07/14/19 Rx release amoxicillin 500 mg capsule 2,000 mg PO DIRECTED PRN cap 01/05/19 07/14/19 History diltiazem HCl 300 mg 300 mg PO DAILY #90 cap 03/21/19 07/14/19 Rx capsule,extended release 24 hr rosuvastatin 5 mg tablet 5 mg PO DAILY #90 tab 07/12/19 07/14/19 Rx telmisartan 80 mg PO DAILY 07/13/19 07/14/19 History Patient History Medical History Acid reflux disease with ulcer (Chronic) CKD (chronic kidney disease) (Chronic) Dyslipidemia (Chronic) HTN (hypertension) (Chronic) Hyperglycemia (Chronic) Low HDL (under 40) (Chronic) LVH (left ventricular hypertrophy) (Chronic) Metabolic syndrome (Chronic) Surgical History H/O inguinal hernia repair History of arthroplasty of right hip Family History Mother Cancer Social History Preferred Language: Cuban Communication Ability: Effective Visual Impairment: No Limitations Hearing Ability: Normal Shipyard Supervisor Required: No Beliefs That Will Affect Care: None marital status: Current Living Situation: Spouse current occupational status: retired Other Information That Helps Us Care for You: No Feels Safe at Home: Yes Safety Concerns: Feels Safe At This Time Smoking Status: Never smoker Do You Dip or Chew Tobacco: No ; Hx Alcohol Use: Yes Alcohol type: beer and wine Alcohol Intake Frequency: Holi days/Special Occasions Hx Substance Use: No Childhood Exposure to Second-Hand Smoke: No Dental Care, Regularly: Yes Physical Activity Frequency: Daily Seatbelt Use: always Sunscreen Use: Yes Review of Systems Review of Systems: All systems reviewed & are unremarkable except as noted in HPI & below Physical Exam Constitutional: well developed and well nourished Neck: neck nontender Respiratory: normal respiratory effort; no respiratory distress and does not use accessory muscles Cardiovascular: Rate/Rhythm: regular rate Vessels: radial pulses present Extremities: no edema Gastrointestinal (Abdomen): Inspection/Auscultation: abdomen normal to inspection Percussion/Palpation: abdomen soft; abdomen nontender and no guarding Musculoskeletal: Head/Neck/Chest: normocephalic and head atraumatic Extremities: extremities normal to inspection Skin: no rashes and no lesions Trauma: no evidence of skin trauma Neurologic: awake; not obtunded Speech / Cognition: normal speech Motor/Sensory: no tremor Psychiatric: Orientation: alert and oriented x 3 Genitourinary: no CVA tenderness Lymphatic: no lymphadenopathy Results & Data Vital Signs (Past 12 Hours) Vital Signs Temp Pulse Pulse Resp BP BP Pulse Ox 07/14/19 22:57 36.9 C 76 16 123/70 94 07/14/19 20:30 36.9 C 92 H 15 137/78 97 07/14/19 20:00 87 17 134/74 94 PG Care Time/CCT Total # of Minutes Spent Total Time Spent with Patient: Total time spent is greater than 50% in coordination of care (as documented) at patient's floor/unit and/or counseling patient: Coding Level of Care Code 31654 Inpt Consult Level 4 Diagnoses Right kidney stone N20.0
[2019-07-15] MEDS ORDERED: CIPROFLOXACIN / D5W 400 MG/200 ML BAG IV SCH (08:00)
[2019-07-15] MEDS ORDERED: METOPROLOL SUCC 25MG EXT REL TAB PO SCH (09:00)
[2019-07-15] MEDS ORDERED: dilTIAZem HCL 300 MG CAPCR PO SCH (09:00)
[2019-07-15] MEDS ORDERED: ROSUVASTATIN CALCIUM 5 MG TAB PO SCH (09:00)
[2019-07-15] MEDS ORDERED: PANTOprazole 40 MG TAB PO SCH (09:00)
--- NOTE | 2019-07-15 17:25 | Discharge Summary ---
Date of Service July 15, 2019 Admission HPI Per Admitting Provider Patient is a 69yo C male with history of HTN/HLP/CKD/GERD. He was seen in the ER yesterday with complaint of right lower quadrant abdominal pain, found to have a 4mm obstructing calculus at the right vesicoureteral junction with mild to moderate right hydroureteronephrosis. Patient was given NSS, Dilaudid and Zofran, Toradol and Flexeril with resolution of symptoms therefore he was discharged home. Patient felt well throughout the night, however, this morning he had a recurrence of his pain. Severe, 8-9/10 in the RLQ. He also has some mild nausea and a headache. No fevers/chills/dysuria/back pain. No diar mary/CP/cough/SOB. No additional complaints at this time. ER Course: Dilaudid, Zofran, NSS Admission Exam Per Admitting Provider General: patient resting comfortably, NAD, non-toxic in appearance, AA&O x 4 Skin: warm, dry, intact, no rashes or lesions HEENT: NC/AT, PERRL, EOMI, anicteric sclera, conjunctiva without injection, external ear normal to inspection and nontender, nares patent, moist mucus membranes, dentition intact, no oropharyngeal lesions, neck supple, trachea midline, no LAD, no thyromegaly, no JVD Heart: +S1/S2, regular, no m/r/g Lungs: equal air entry bilaterally, no rales/rhonchi/wheezes Abd: +BS, soft, NT/ND, no masses/organomegaly/ascites Ext: warm, 2+ pulses in UE/LE bilaterally, no clubbing/cyanosis or edema Neuro: nonfocal, patient AA&O x 4, speech intact, no facial droop, moving all extremities on command with equal strength 5/5 Principal Diagnosis Nephrolithiasis Discharge Exam General: awake, alert, no apparent distress, + dressed in street clothes Head: Normocephalic, atraumatic ENT: PERRL, EOMI, no pharyngeal exudate, mucous membranes moist Chest: Clear to auscultation, on room air, no adventitious breath sounds Cardiac: Regular rate and rhythm, no murmur, no JVD, normal peripheral pulses, good capillary refill Abdominal: NABS x 4 quadrants, soft, nondistended, nontender to palpation, no rebound, guarding or tenderness Extremities: Normal inspection, no peripheral edema or erythema, calfs nontender to palpation Psych: Normal mood and affect Neuro: AAO x 3, strength intact bilaterally and rated 5/5, no motor deficits, speech is clear, no peripheral sensory deficits Discharge Data Allergies Allergy/AdvReac Type Severity Reaction Status Date / Time No Known Allergies Allergy Verified 07/14/19 17:31 Consultations 07/14/19 19:13 ED Decision to Admit Stat 07/14/19 20:32 Consult Urology Routine Procedures Performed Operation Date: 07/15/19 09:00 <No data on this case meets the specified criteria> Hospital Course (1) Right kidney stone: -nausea, increased in leukocytosis, BUN and Cr. all improved this morning. -KUB did not clearly identify the stone -UA does not suggest infection -IVF, Zofran and Dilaudid PRN -Flomax 0.4mg po and IVF overnight. -Strain urine - pt passed stone this morning prior to scheduled lithotripsy and was discharged home. (2) JAREK (acute kidney injury): -BUN from 21-->16 and Cr=1.94 --> 1.24 - Resolved (3) Acid reflux disease with ulcer: -Chronic. Stable -Continue Protonix 40mg po daily (4) Dyslipidemia: -Chronic. Stable -Continue Crestor 5mg po daily (5) HTN (hypertension): -Chronic. Stable, IA=798l/70s at time of d/c -Continue Metoprolol and Diltiazem -Hold Telmisartan for now -Continue to monitor Ppx- SCDs Code - Full Dispo - Discharge home today as passed stone on his own, no lithotripsy procedure was required. Total Time Total Time Spent Total Time Spent (In Minutes): 34, I supervised Lamar MOORE with this patient. The patient was pressuring us to discharge him early in the morning. The patient did pass his kidney stone spontaneously and urology bed at that he should go home. I did discuss the case with me as well as with discharge planning, full agreement. Patient is discharged home with follow-up with [email or web address] Discharge Plan Discharge Items Patient Disposition: Home - Self-Care Reason For Visit: OBSTRUCTING RENAL STONE Discharge Diagnosis: Nephrolithiasis, intractable pain. Condition on Discharge: Good Activity: Resume your previous activity Lifting: Gradually increase as tolerated Bathing: No limitations Exercise/Sports: Gradually increase as tolerated Driving/Machine Use: Resume 1 day after discharge Non-emergency contact: Primary Care Provider Call non-emergency contact if: you have any medication questions, your pain is not controlled and your rectal temperature is above 100.4 Follow-up/Referrals: uCrt Oquendo MD [Primary Care Provider] - Olu Godinez MD [Physician] - Diet: Heart Healthy Addtl Attending Provider Instructions: You were admitted to [facility] due to intractable pain, nausea and diagnosed with nephrolithiasis. During your stay here you were treated with supportive care, medications and fluids and your symptoms improved. Imaging studies which were completed included a KUB film of the abdomen and were abnormal showing your kidney stone. After recieving fluids you passed the stone, did not need further intervention, and pain resolved. You were stable for discharge home. Medications: Continue taking you medications as prescribed. Appointments: Follow up with PCP within 2-4 weeks, an appointment has been requested for you. Pending Studies at Discharge: No Stand-Alone Forms: [facility], Smoking Cessation Medications and DC Order Prescriptions: Continued aspirin [Adult Low Dose Aspirin] 81 mg tablet,delayed release (DR/EC) 81 mg PO DAILY Qty: 30 RF: 2 pantoprazole 40 mg tablet,delayed release (DR/EC) 40 mg PO DAILY Qty: 30 RF: 2 metoprolol succinate 25 mg tablet extended release 24 hr 25 mg PO DAILY Qty: 90 RF: 3 diltiazem HCl [Cartia XT] 300 mg capsule,extended release 24hr 300 mg PO DAILY Qty: 90 RF: 3 rosuvastatin 5 mg tablet 5 mg PO DAILY Qty: 90 RF: 3 amoxicillin 500 mg capsule 2,000 mg PO DIRECTED PRN (Reason: Pre Treat) RF: 0 telmisartan 80 mg tablet 80 mg PO DAILY RF: 0 Discharge Orders: Discharge Order (Routine); Ordered 07/15/19 Ordered By: Darius Patel/Other Patient Handouts: Kidney Stones, Kidney Stones Prevent Admission Data Admit Date/Time: 07/14/19 19:42 Attending Provider: Darius Paredes Admit Provider: Roselia Russ Primary Care Provider: Curt Oquendo Other Providers: Roselia Russ ; Wilbur Rojo Other Interventions: Discharge Summary Assessment (RN) Last Done: 07/15/19 08:34 DC Date/Time DO NOT enter until pt leaves facility: 07/15/19 08:55 Coding Level of Care Code D/C Day Management >30 mins Diagnoses Right kidney stone N20.0 JAREK (acute kidney injury) N17.9 Acid reflux disease with ulcer K21.9 Dyslipidemia E78.5 HTN (hypertension) I10 Hypertension type: essential hypertension
[2019-07-15] MEDS ORDERED: TAMSULOSIN HCL 0.4 MG CAP PO SCH (21:00)
[2019-07-18 16:59] LABS: Calculus Nidus Not Observed; Component 2 DNR; Source KIDNEY STONE
== END 2019-07-15 08:55 | disposition home or self-care (01) ==
LOC: ED 16:46 → 3E 16:46 → SUATTDRO 19:42 → 3E 20:09

== ENCOUNTER 2020-05-25 07:44 | Observation (INO) ==
--- NOTE | 2020-05-25 08:07 | Emergency Department Note ---
Impression & Plan CVA (cerebral vascular accident), Vertigo, Dehydration, COVID-19 vaccine series started ED Provider Note NAME: ABRAHAM GARRETT AGE: 70 SEX: M ARRIVES VIA: Walk-In INFORMANT: Patient, ED PROVIDER(S): Baldemar Thomas MD CHIEF COMPLAINT: Dizziness PLAN: Disposition: Admit MEDICAL DECISION MAKING: The patient is a pleasant 70-year-old gentleman with a past medical history of hypertension, hyperlipidemia, history of PMR and temporal arteritis who presents emerge department with symptoms of lightheadedness with some blurred vision and room spinning that began this morning when he got up to go to work and took a shower and felt as though he was going to pass out and did improve when he sat down but when getting back to bed and lifting up his head he would feel room spinning again. The patient reports even before getting up this morning he did get up to go to the bathroom once did not feel "quite right". Otherwise he reports getting his second COVID-19 vaccination on Thursday and subsequently Thursday and felt feverish with body aches but that subsequently subsided and . He denies chest pain, shortness of breath, nausea, vomiting, diarrhea, urinary symptoms. On arrival the patient is fatigued appearing but no acute distress, afebrile stable vital signs. He appears clinically dry. He has no focal neurologic deficits at this time. EOMI. No nystamgus. PEARRL. 5/5 strength and SILT x 4 extremities. Cerebellar function intact including ypemol-[id number], alternating palms, [id number]. EKG without overt acute ischemia. CXR negative for acute cardiopulmonary process. WBC, H/H, platelets wnl. ESR 18 and CRP 1.5, nonspecific. Chemistry without acidosis. LFTs and electrolytes unremarkable. Troponin negative/undetectable. Covid-19 RNA, NAAT negative. CT head and CTA head and neck performed. Subacute versus chronic left caudate infarct noted. No severe narrowing or occlusion of large vessels. Cerebrovascul ar disease is note with multifocal luminal narrowing of the left clinoid and supraclinoid left internal carotid artery and left M1 segment measuring up to 50%. Unclear significance of CT findings related to patient's symptoms at this time. However, reasonable to admit for further stroke evaluation. Resident, Dr. Espinoza reviewed findings with patient and his at the bedside and they agree with plan for admission. Case was discussed with Dr. Lloyd, [facility] hospitalist, who will evaluate the patient for admission. This patient was managed with the assistance of resident, Dr. Espinoza. I discussed the case with the resident, examined the patient, and confirm the findings and plan as documented in this note. Triage Nursing notes reviewed and agree them. Prior medical records reviewed Vital Signs: reviewed and remarkable for hypertension. Differential diagnosis: Benign positional vertigo, dehydration, hypovolemia, anemia, tumor, infection, hypoglycemia, electrolyte abnormalities, cardiac sources, intracerebral event, toxicologic, neurologic, as well as other pathologies. ER treatment provided: See below. Diagnostics interpreted by me: ECG: Normal sinus rhythm, 63 bpm, no ectopy, no overt ST elevation or depression, QTC 454, QRS 100. Cardiac Monitoring: An order for continuous cardiac monitoring was placed and demonstrated Normal sinus rhythm, 63 bpm, no ectopy. Laboratory studies: See below Imaging studies: XR chest 1V portable HISTORY: 70 years-old Male dizziness acute dizziness COMPARISON: Chest radiographs 05/03/2019 TECHNIQUE: Portable AP view of the chest FINDINGS: Cardiac mediastinal and hilar silhouettes are within normal limits. Unchanged right hemidiaphragmatic elevation. No pneumothorax, pleural effusion, airspace consolidation or overt pulmonary edema. Degenerative changes of the shoulders and spine. IMPRESSION: No acute process. -- Stroke like symptoms CLINICAL HISTORY: r/o stroke COMPARISON STUDY: MRI the brain performed July 2012 TECHNIQUE: Axial CT of the brain is performed from the vertex to the skull base. IV contrast was not administered for this examination. A dose lowering technique was utilized adhering to the principles of ALARA. CT DOSE: FINDINGS: There is an age-indeterminate left caudate infarct. There is no midline shift. There is no acute hemorrhage. There are minor white matter hypodensities likely on a small vessel basis. There is no evidence of pathologic ventricular dilatation. There is no evidence of acute sinusitis IMPRESSION: 1. Subacute versus chronic left caudate infarct. - CT angio neck with con, CT angio head w con CLINICAL HISTORY: 70 years-old Male with r/o stroke. Acute strokelike symptoms with dizziness, nausea and blurry vision COMPARISON STUDY: Head CT of same day TECHNIQUE: Following the IV administration of Optiray 320, CT angiogram of the head and neck was performed from the aortic arch to the skull apex. Images are reviewed in the axial, sagittal, and coronal planes. 3-D MIPS images are created and assessed. IV contrast was administered without complication. All measurements were calculated based on NASCET criteria. A dose lowering technique was utilized adhering to the principles of ALARA. CT DOSE: 1287.54 mGy.cm FINDINGS: Cardiomegaly. The opacified pulmonary artery appears unremarkable. Three-vessel morphology of the thoracic aortic arch. There is patency of the innominate and imaged subclavian arteries. The common carotid arteries are widely patent. There is moderate mixed plaque of the carotid bulbs and proximal internal carotid arteries resulting in less than 50% stenosis. Extensive calcified plaque of the cavernous and supraclinoid segments, left greater than right with resultant least mild multifocal luminal narrowing of the left clinoid and supraclinoid segments. There is approximately 50% luminal narrowing of the mid to distal M1 segment of the left middle cerebral artery on image 100 series 5. The right middle and bilateral anterior cerebral arteries are widely patent. Dominant left with developmentally diminutive right vertebral artery. The basilar artery is patent. origin of the right posterior cerebral artery. Bilateral posterior cerebral arteries are widely patent. The cerebral venous sinuses are patent. There is no abnormal intracranial enhancement. No pneumothorax. Subcentimeter thyroid nodules measure up to 7 mm on the left. Polypoid mucosal thickening of the left maxillary sinus. Degenerative changes of the cervical spine. IMPRESSION: 1. No aneurysm, dissection, high-grade stenosis or proximal branch occlusion. 2. Atheromatous plaque of the carotid bulbs resulting in less than 50% luminal narrowing bilaterally. 3. Multifocal luminal narrowing of the left clinoid and supraclinoid left internal carotid artery and left M1 segment measuring up to 50%. ACT 112: Negative or not required by law. Consultation(s): Case was discussed with Dr. Lloyd, [facility] hospitalist, who will evaluate the patient for admission. HPI: The patient is a pleasant 70-year-old gentleman with a past medical history of hypertension, hyperlipidemia, history of PMR and temporal arteritis who presents emerge department with symptoms of lightheadedness with some blurred vision and room spinning that began this morning when he got up to go to work and took a shower and felt as though he was going to pass out and did improve when he sat down but when getting back to bed and lifting up his head he would feel room spinning again. The patient reports even before getting up this morning he did get up to go to the bathroom once did not feel "quite right". Otherwise he reports getting his second COVID-19 vaccination on Thursday and subsequently Thursday and felt feverish with body aches but that subsequently subsided and . He denies chest pain, shortness of breath, nausea, vomiting, diarrhea, urinary symptoms. ROS: See above HPI for pertinent positives & negatives. A total of 10 systems reviewed and were otherwise negative. PAST MEDICAL HISTORY:See Below PAST SURGICAL HISTORY:See Below FAMILY HISTORY:See Below SOCIAL HISTORY:See Below HOME MEDICATIONS:See Below ALLERGIES:See Below VITALS:See Below PHYSICAL EXAMINATION: GENERAL: Awake, alert, fatigued-appearing, in no distress HENT: Normocephalic, atraumatic. Oropharynx with dry mucous membranes and otherwise unremarkable. EYES: Normal conjunctiva. Sclera non-icteric. EOMI. No nystamgus. PEARRL. NECK: Supple. No nuchal rigidity. FROM. No JVD. RESPIRATORY: Clear to auscultation. CARDIAC: Regular rate, normal rhythm. Extremities warm and well perfused. Pulses equal. ABDOMEN: Soft, non-distended. No tenderness to palpation. No rebound or guarding. No masses. RECTAL: Deferred. MUSCULOSKELETAL: Chest examination reveals no tenderness. The back is symmetrical on inspection without obvious abnormality. There is no CVA tende rness to palpation. No joint edema. LOWER EXTREMITIES: Calves are equal size bilaterally and non-tender. No edema. No discoloration. NEURO: Normal sensorium. No focal sensory or motor deficits noted. 5/5 strength and SILT x 4 extremities. Cerebellar function intact including [id number], alternating palms, joyx-ol-[id number]. SKIN: No rash or jaundice noted. Baldemar Thomas MD Past Med/Surg History Medical History (Updated 05/25/20 @ 23:09 by Baldemar Thomas MD) Acid reflux disease with ulcer CKD (chronic kidney disease) Dyslipidemia HTN (hypertension) Hyperglycemia Low HDL (under 40) LVH (left ventricular hypertrophy) Metabolic syndrome Surgical History H/O inguinal hernia repair History of arthroplasty of right hip Family History Mother Cancer Sister Breast cancer Denies family history of Ovarian cancer Prostate cancer Lung cancer Colorectal cancer Social History Smoking Status: Never smoker Second Hand Exposure: No; Do You Dip or Chew Tobacco: No; Tobacco Cessation Education Requested by Patient: No Hx Alcohol Use: Yes (socially) Alcohol type: beer and wine Hx Substance Use: No Preferred Language: Greenlandic Communication Ability: Effective Visual Impairment: No Limitations Hearing Ability: Normal Cycle Analyst Required: No Beliefs That Will Affect Care: None marital status: Current Living Situation: Spouse current occupational status: retired Other Information That Helps Us Care for You: No Feels Safe at Home: Yes Childhood Exposure to Second-Hand Smoke: No caffeine: Yes Dental Care, Regularly: Yes Physical Activity Frequency: Daily Seatbelt Use: always Sunscreen Use: Yes Assistive Devices: None Allergies Allergies Allergy/AdvReac Type Severity Reaction Status Date / Time No Known Allergies Allergy Verified 05/25/20 08:37 Home Meds Home Medications Medication Instructions Recorded Confirmed aspirin [Adult Low Dose Aspirin] 81 mg PO QDD 05/25/20 05/25/20 diltiazem HCl [Cartia XT] 300 mg PO QDD 05/25/20 05/25/20 metoprolol succinate 25 mg PO QDD 05/25/20 05/25/20 multivitamin 1 tab PO QDD 05/25/20 05/25/20 pantoprazole 40 mg PO QDD 05/25/20 05/25/20 rosuvastatin 5 mg PO QDD 05/25/20 05/25/20 telmisartan 80 mg PO QDD 05/25/20 05/25/20 Previous Rx's Medication Instructions Recorded amoxicillin 500 mg tablet 2,000 mg PO ONCE #4 tab 08/22/19 Results & Data (ED) Vital Signs Vital Signs - 24 hr 05/25/20 07:46 05/25/20 07:58 05/25/20 08:12 Pulse Rate - Lying 72 Pulse Rate - Sitting 69 Pulse Rate - Standing 76 Pulse Rate 71 64 71 Pulse Rate from SpO2 Sensor 64 71 Respiratory Rate 18 15 16 Blood Pressure - Lying 132/86 Blood Pressure - Sitting 152/84 H Blood Pressure- Standing 154/96 H Blood Pressure 155/94 H 144/86 H 152/84 H Blood Pressure Mean 114 105 106 Pulse Oximetry 97 96 97 Oxygen Delivery Method Room Air Room Air Sepsis Recent Fever Within 48 Hours No Sepsis New/Unexplained Change in Mental Status N/A Sepsis Action Taken by Nursing No Action Required 05/25/20 08:13 05/25/20 08:30 05/25/20 11:00 Pulse Rate - Lying Pulse Rate - Sitting Pulse Rate - Standing Pulse Rate 75 68 60 Pulse Rate from SpO2 Sensor 74 68 60 Respiratory Rate 22 21 17 Blood Pressure - Lying Blood Pressure - Sitting Blood Pressure- Standing Blood Pressure 154/94 H 148/92 H 146/85 H Blood Pressure Mean 114 110 105 Pulse Oximetry 95 95 94 Oxygen Delivery Method Sepsis Recent Fever Within 48 Hours Sepsis New/Unexplained Change in Mental Status Sepsis Action Taken by Nursing Laboratory Data Attestation: I reviewed the patient's lab results. Result diagrams: 05/25/20 08:14 05/25/20 08:14 Lab Results 05/25/20 05/25/20 05/25/20 Range/Units 08:12 08:14 08:14 WBC 8.48 (4.8-10.8) K/uL RBC 4.80 (4.7-6.1) M/uL Hgb 14.7 (14.0-18.0) g/dL Hct 42.5 (42-52) % MCV 88.5 (80-100) fL MCH 30.6 (25-34) pg MCHC 34.6 (32-36) g/dL RDW Std Deviation 43.1 (36.4-46.3) fL RDW Coeff of Augustus 13.2 (11.5-14.5) % Plt Count 190 (130-400) K/uL MPV 9.9 (7.4-10.4) fL Immature Gran % (Auto) 0.5 % Neut % (Auto) 67.4 % Lymph % (Auto) 16.0 % Dawson % (Auto) 11.9 % Eos % (Auto) 4.1 % Baso % (Auto) 0.1 % Neut # (Auto) 5.71 (1.4-6.5) K/uL Lymph # (Auto) 1.36 (1.2-3.4) K/uL Dawson # (Auto) 1.01 H (0.11-0.59) K/uL Eos # (Auto) 0.35 (0-0.5) K/uL Baso # (Auto) 0.01 (0-0.2) K/uL Immature Gran # (Auto) 0.04 H (0.00-0.02) K/uL ESR 18 H (0-14) mm/hr Sodium 140 (136-145) mmol/L Potassium 3.8 (3.5-5.1) mmol/L Chloride 109 H (98-107) mmol/L Carbon Dioxide 24 (21-32) mmol/L Anion Gap 7.0 (3-11) BUN 20 H (7-18) mg/dl Creatinine 1.24 (0.6-1.4) mg/dl Est Cr Clr Drug Dosing Not Reportable Est GFR ( Amer) 67.4 Est GFR (Non-Af Amer) 58.1 BUN/Creatinine Ratio 15.7 (10-20) Glucose 129 H (70-99) mg/dl Calcium 9.2 (8.5-10.1) mg/dl Phosphorus 2.8 (2.5-4.9) mg/dl Magnesium 2.3 (1.8-2.4) mg/dl Total Bilirubin 0.3 (0.2-1) mg/dl AST 25 (15-37) U/L ALT 37 (12-78) U/L Alkaline Phosphatase 114 (45-117) U/L Troponin I < 0.015 (0-0.045) ng/ml C-Reactive Protein 1.59 H (0-0.29) mg/dl Total Protein 8.0 (6.4-8.2) gm/dl Albumin 3.8 (3.4-5.0) gm/dl Globulin 4.2 H (2.5-4.0) gm/dl Albumin/Globulin Ratio 0.9 (0.9-2) COVID-19 Eval Order SARS-CoV-2, RNA, NAAT (NEGATIVE) 05/25/20 05/25/20 Range/Units 10:53 10:53 WBC (4.8-10.8) K/uL RBC (4.7-6.1) M/uL Hgb (14.0-18.0) g/dL Hct (42-52) % MCV (80-100) fL MCH (25-34) pg MCHC (32-36) g/dL RDW Std Deviation (36.4-46.3) fL RDW Coeff of Augustus (11.5-14.5) % Plt Count (130-400) K/uL MPV (7.4-10.4) fL Immature Gran % (Auto) % Neut % (Auto) % Lymph % (Auto) % Dawson % (Auto) % Eos % (Auto) % Baso % (Auto) % Neut # (Auto) (1.4-6.5) K/uL Lymph # (Auto) (1.2-3.4) K/uL Dawson # (Auto) (0.11-0.59) K/uL Eos # (Auto) (0-0.5) K/uL Baso # (Auto) (0-0.2) K/uL Immature Gran # (Auto) (0.00-0.02) K/uL ESR (0-14) mm/hr Sodium (136-145) mmol/L Potassium (3.5-5.1) mmol/L Chloride (98-107) mmol/L Carbon Dioxide (21-32) mmol/L Anion Gap (3-11) BUN (7-18) mg/dl Creatinine (0.6-1.4) mg/dl Est Cr Clr Drug Dosing Est GFR ( Amer) Est GFR (Non-Af Amer) BUN/Creatinine Ratio (10-20) Glucose (70-99) mg/dl Calcium (8.5-10.1) mg/dl Phosphorus (2.5-4.9) mg/dl Magnesium (1.8-2.4) mg/dl Total Bilirubin (0.2-1) mg/dl AST (15-37) U/L ALT (12-78) U/L Alkaline Phosphatase (45-117) U/L Troponin I (0-0.045) ng/ml C-Reactive Protein (0-0.29) mg/dl Total Protein (6.4-8.2) gm/dl Albumin (3.4-5.0) gm/dl Globulin (2.5-4.0) gm/dl Albumin/Globulin Ratio (0.9-2) COVID-19 Eval [facility] SARS-CoV-2, RNA, NAAT NEGATIVE (NEGATIVE) Administered Medications Aspirin (Aspirin 81 Mg Ectab) 81 mg PO QDD [facility] Stop: 06/24/20 16:29 Last Admin: 05/25/20 17:35 Dose: 81 mg Documented by: [id number] Diltiazem HCl (Diltiazem Hcl 300 Mg Capcr) 300 mg PO QDD [facility] Stop: 06/24/20 16:29 Last Admin: 05/25/20 17:35 Dose: 300 mg Documented by: [id number] Metoprolol Succinate (Metoprolol Succ 25mg Ext Rel Tab) 25 mg PO QDD [facility] Stop: 06/24/20 16:29 Last Admin: 05/25/20 17:35 Dose: 25 mg Documented by: [id number] Multivitamins (Multivitamin Tab) 1 tab PO QDD [facility] Stop: 06/24/20 16:29 Last Admin: 05/25/20 17:35 Dose: 1 tab Documented by: [id number] Pantoprazole Sodium (Pantoprazole 40 Mg Tab) 40 mg PO QDD [facility] Stop: 06/24/20 16:29 Last Admin: 05/25/20 17:36 Dose: 40 mg Documented by: [id number] Rosuvastatin Calcium (Rosuvastatin Calcium 5 Mg Tab) 5 mg PO QDD [facility] Stop: 06/24/20 16:29 Last Admin: 05/25/20 17:36 Dose: 5 mg Documented by: [id number] Telmisartan (Telmisartan 40 Mg Tab) 80 mg PO QDD [facility] Stop: 06/24/20 16:29 Last Admin: 05/25/20 17:36 Dose: 80 mg Documented by: [id number] Discontinued Medications Acetaminophen (Acetaminophen 1000 Mg/100 Ml Iv) 1,000 mg IV NOW STA Stop: 05/25/20 08:34 Last Admin: 05/25/20 09:34 Dose: 1,000 mg Documented by: [id number] Diphenhydramine HCl (Diphenhydramine 50 Mg/Ml Vial) 25 mg IV NOW STA Stop: 05/25/20 08:34 Last Admin: 05/25/20 09:34 Dose: 25 mg Documented by: [id number] Gadobutrol (Gadobutrol 65ml Vial) 9 ml IV ONCE ONE Stop: 05/25/20 13:10 Last Admin: 05/25/20 13:10 Dose: 9 ml Documented by: [id number] Sodium Chloride (Nss 1000ml) 1,000 mls @ 999 mls/hr IV .Q1H1M [facility] Stop: 05/25/20 09:15 Last Infusion: 05/25/20 10:12 Dose: 0 mls/hr Documented by: [id number] Admin: 05/25/20 08:15 Dose: 999 mls/hr Documented by: [id number] Ioversol (Optiray 320 125ml) 120 ml IV ONCE ONE Stop: 05/25/20 09:03 Last Admin: 05/25/20 09:03 Dose: 120 ml Documented by: [id number] Metoclopramide HCl (Metoclopramide Hcl Inj 5 Mg/Ml 2 Ml Vial) 5 mg IV NOW STA Stop: 05/25/20 08:34 Last Admin: 05/25/20 09:33 Dose: 5 mg Documented by: [id number] Discharge Plan Visit Data Chief Complaint: Dizziness Stated Complaint: HEART ATTACK SYMPTOMS ED Provider: Baldemar Thomas ED Midlevel Provider: Rodrigo Espinoza Discharge Problem: CVA (cerebral vascular accident), Vertigo, Dehydration, COVID-19 vaccine series started Patient Disposition: Admitted As Inpatient Discharge Instructions Interventions: ED Discharge Assessment Last Done: 05/25/20 13:12 Discharge Problem: CVA (cerebral vascular accident) Qualifiers: CVA mechanism: unspecified Qualified Code(s): I63.9 - Cerebral infarction, unspecified
[2020-05-25] MEDS ORDERED: SODIUM CHLORIDE 0.9% 1000ML 1,000 ML IV SCH (08:15)
--- NOTE | 2020-05-25 08:17 | Emergency Department Note ---
ED Visit Note This patient was seen in concert with Dr. Thomas and we discussed and agreed upon the history, physical, assessment, and plan. See attending's note for details. . Resident Activity Tracking Resident Involvement: Resident Care Provided Care Provided: Adult ED
[2020-05-25 08:22] LABS: Basophils # (auto) 0.01 K/uL (0-0.2); Basophils % (auto) 0.1 %; Eosinophils # (auto) 0.35 K/uL (0-0.5); Eosinophils % (auto) 4.1 %; Hematocrit (blood only) 42.5 % (42-52); Hemoglobin 14.7 g/dL (14.0-18.0); Immature Granulocytes # (auto) 0.04 K/uL (0.00-0.02); Immature Granulocytes % (auto) 0.5 %; Lymphocytes # (auto) 1.36 K/uL (1.2-3.4); Mean Corpuscular Hemoglobin 30.6 pg (25-34); Mean Corpuscular Hgb Conc 34.6 g/dL (32-36); Mean Corpuscular Volume 88.5 fL (80-100); Mean Platelet Volume 9.9 fL (7.4-10.4); Monocytes # (auto) 1.01 K/uL (0.11-0.59); Monocytes % (auto) 11.9 %; Neutrophils # (auto) 5.71 K/uL (1.4-6.5); Neutrophils % (auto) 67.4 %; Platelet Count 190 K/uL (130-400); RDW Coefficient of Variation 13.2 % (11.5-14.5); RDW Standard Deviation 43.1 fL (36.4-46.3); White Blood Count 8.48 K/uL (4.8-10.8)
[2020-05-25] MEDS ORDERED: METOCLOPRAMIDE HCL INJ 5 MG/ML 2 ML VIAL IV STA (08:33)
[2020-05-25] MEDS ORDERED: diphenhydrAMINE 50 MG/ML VIAL IV STA (08:33)
[2020-05-25] MEDS ORDERED: ACETAMINOPHEN 1000 MG/100 ML IV IV STA (08:33)
[2020-05-25 08:46] LABS: Alanine Aminotransferase 37 U/L (12-78); Albumin Globulin Ratio 0.9 (0.9-2); Albumin Level 3.8 gm/dl (3.4-5.0); Alkaline Phosphatase 114 U/L (45-117); Aspartate Aminotransferase 25 U/L (15-37); BUN Creatinine Ratio 15.7 (10-20); Bilirubin,Total 0.3 mg/dl (0.2-1); Blood Urea Nitrogen 20 mg/dl (7-18); Calcium 9.2 mg/dl (8.5-10.1); Carbon Dioxide 24 mmol/L (21-32); Chloride 109 mmol/L (98-107); Est GFR (African American) 67.4; Est GFR (Non-African American) 58.1; Globulin 4.2 gm/dl (2.5-4.0); Glucose 129 mg/dl (70-99); Magnesium 2.3 mg/dl (1.8-2.4); Phosphorus 2.8 mg/dl (2.5-4.9); Potassium 3.8 mmol/L (3.5-5.1); Sodium 140 mmol/L (136-145); Troponin I < 0.015 ng/ml (0-0.045)
[2020-05-25] MEDS ORDERED: OPTIRAY 320 125ml IV ONE (09:02)
--- NOTE | 2020-05-25 09:18 | CT Scan Report ---
Stroke like symptoms CLINICAL HISTORY: r/o stroke COMPARISON STUDY: MRI the brain performed July 2012 TECHNIQUE: Axial CT of the brain is performed from the vertex to the skull base. IV contrast was not administered for this examination. A dose lowering technique was utilized adhering to the principles of ALARA. CT DOSE: FINDINGS: There is an age-indeterminate left caudate infarct. There is no midline shift. There is no acute hemo rrhage. There are minor white matter hypodensities likely on a small vessel basis. There is no evidence of pathologic ventricular dilatation. There is no evidence of acute sinusitis IMPRESSION: 1. Subacute versus chronic left caudate infarct. ACT 112: Negative or not required by law. Electronically signed by: Avel Hernandez M.D. 05/25/2020 9:17 AM
--- NOTE | 2020-05-25 09:27 | CT Scan Report ---
CT angio neck with con, CT angio head w con CLINICAL HISTORY: 70 years-old Male with r/o stroke. Acute strokelike symptoms with dizziness, janey sea and blurry vision COMPARISON STUDY: Head CT of same day TECHNIQUE: Following the IV administration of Optiray 320, CT angiogram of the head and neck was perf ormed from the aortic arch to the skull apex. Images are reviewed in the axial, sagittal, and coronal planes. 3-D MIPS images are created and assessed. IV contrast was administered without complication. All measurements were calculated based on NASCET criteria. A dose lowering technique was utilized a dhering to the principles of ALARA. CT DOSE: 1287.54 mGy.cm FINDINGS: Cardiomegaly. The opacified pulmonary artery appears unremarkable. Three-vessel morphology of the tho racic aortic arch. There is patency of the innominate and imaged subclavian arteries. The common arora tid arteries are widely patent. There is moderate mixed plaque of the carotid bulbs and proximal inte rnal carotid arteries resulting in less than 50% stenosis. Extensive calcified plaque of the cavernou s and supraclinoid segments, left greater than right with resultant least mild multifocal luminal nichole rowing of the left clinoid and supraclinoid segments. There is approximately 50% luminal narrowing of the mid to distal M1 segment of the left middle cerebral artery on image 100 series 5. The right mid dle and bilateral anterior cerebral arteries are widely patent. Dominant left with developmentally di minutive right vertebral artery. The basilar artery is patent. origin of the right posterior ce rebral artery. Bilateral posterior cerebral arteries are widely patent. The cerebral venous sinuses a re patent. There is no abnormal intracranial enhancement. No pneumothorax. Subcentimeter thyroid nodules measure up to 7 mm on the left. Polypoid mucosal thick ening of the left maxillary sinus. Degenerative changes of the cervical spine. IMPRESSION: 1. No aneurysm, dissection, high-grade stenosis or proximal branch occlusion. 2. Atheromatous plaque of the carotid bulbs resulting in less than 50% luminal narrowing bilaterally. 3. Multifocal luminal narrowing of the left clinoid and supraclinoid left internal carotid artery and left M1 segment measuring up to 50%. ACT 112: Negative or not required by law. The above report was generated using voice recognition software. It may contain grammatical, syntax o r spelling errors. Electronically signed by: Sean Chow M.D. 05/25/2020 9:26 AM
--- NOTE | 2020-05-25 09:34 | XRay Report ---
XR chest 1V portable HISTORY: 70 years-old Male dizziness acute dizziness COMPARISON: Chest radiographs 05/03/2019 TECHNIQUE: Portable AP view of the chest FINDINGS: Cardiac mediastinal and hilar silhouettes are within normal limits. Unchanged right hemidiaphragmatic elevation. No pneumothorax, pleural effusion, airspace consolidation or overt pulmonary edema. Degen erative changes of the shoulders and spine. IMPRESSION: No acute process. ACT 112: Negative or not required by law. The above report was generated using voice recognition software. It may contain grammatical, syntax o r spelling errors. Electronically signed by: Sean Chow M.D. 05/25/2020 9:32 AM
[2020-05-25 10:22] LABS: C Reactive Protein 1.59 mg/dl (0-0.29)
--- NOTE | 2020-05-25 10:29 | History & Physical Report ---
Date of Service May 25, 2020 Assessment & Plan (1) Vertigo: Suspect most likely BPPV but given subacute/chronic stroke on CT recommend full stroke work-up regarding this. Given chronic right ear tinnitus and hearing loss will also get MRI with IAC to assess for schwannoma (2) CVA (cerebral vascular accident): Subacute/chronic Complete full stroke work-up with observation on telemetry Lipid panel and HbA1c with a.m. labs TTE MRI brain Consult neurology (3) CKD (chronic kidney disease): At baseline (4) Acid reflux disease with ulcer: Continue pantoprazole 40 mg p.o. daily (5) Dyslipidemia: Continue rosuvastatin 5 mg p.o. daily pending repeat lipid panel in a.m. (6) HTN (hypertension): Continue his usual hypertension as long as MRI brain negative for acute stroke. Continue diltiazem 300 mg p.o. daily, metoprolol succinate 25 mg p.o. daily, telmisartan 80 mg p.o. daily Admission and Anticipated Discharge Date Admission Date: May 25, 2020 History of Present Illness Chief Complaint: Vertigo Primary Care Provider: Curt Oquendo MD David Smith is a 70-year-old male who presents to the ER with vertigo. The patient reports getting up to urinate in the middle the night and possibly feeling wobbly at that time but okay to get to the bathroom back to bed. On waking up this morning he felt normal initially but when he went to the shower after a short period of time he became lightheaded/dizzy/wobbly. He had to bend down the shower to stop and falling down. He was able to walk back to bed but when he lie down he felt " weird". On rolling to the right-hand side the room started spinning. When he rolled onto his back the vertigo sensation improved. Again when rolling onto the right-hand side he became nauseous with blurred vision and the room spinning. He called his PCP office and recommended going to the ER. Associated frontal aching headache and diaphoresis. He denies any ear fullness, nasal congestion, shortness of breath. He denies any previous episodes of vertigo. No ear fullness. He does note having tinnitus in his right ear for years reportedly due to a chronic ear infection. Notable history of PMR and temporal arteritis. Overnight he received his second COVID-19 vaccine on Thursday.he was generally not feeling well after this with, chills, fatigue, myalgias the following day but felt well yesterday. In the ER he underwent CT head showing subacute versus chronic left caudate infarct. He was referred to medicine for admission and ongoing management of vertigo and subacute stroke. Allergies Allergy/AdvReac Type Severity Reaction Status Date / Time No Known Allergies Allergy Verified 05/25/20 08:37 Home Medications Medication Instructions Recorded Confirmed Type amoxicillin 500 mg tablet 2,000 mg PO ONCE #4 tab 08/22/19 05/25/20 Rx aspirin [Adult Low Dose Aspirin] 81 mg PO QDD 05/25/20 05/25/20 History diltiazem HCl [Cartia XT] 300 mg PO QDD 05/25/20 05/25/20 History metoprolol succinate 25 mg PO QDD 05/25/20 05/25/20 History multivitamin 1 tab PO QDD 05/25/20 05/25/20 History pantoprazole 40 mg PO QDD 05/25/20 05/25/20 History telmisartan 80 mg PO QDD 05/25/20 05/25/20 History atorvastatin [Lipitor] 40 mg PO QDD #30 tab 05/26/20 Rx clopidogrel [Plavix] 75 mg PO QDD #30 tab 05/26/20 Rx meclizine 12.5 mg PO TID PRN #30 tab 05/26/20 Rx Past Med/Surg History Medical History (Updated 05/25/20 @ 23:09 by Baldemar Thomas MD) Acid reflux disease with ulcer CKD (chronic kidney disease) Dyslipidemia HTN (hypertension) Hyperglycemia Low HDL (under 40) LVH (left ventricular hypertrophy) Metabolic syndrome Surgical History H/O inguinal hernia repair History of arthroplasty of right hip Family History Mother Cancer Sister Breast cancer Denies family history of Ovarian cancer Prostate cancer Lung cancer Colorectal cancer Social History Smoking Status: Never smoker Second Hand Exposure: No; Hx Alcohol Use: Yes (socially) Alcohol type: beer and wine Hx Substance Use: No Preferred Language: Kazakh Communication Ability: Effective Visual Impairment: No Limitations Hearing Ability: Normal Energy Efficiency Specialist Required: No Beliefs That Will Affect Care: None marital status: Current Living Situation: Spouse current occupational status: retired Feels Safe at Home: Yes Childhood Exposure to Second-Hand Smoke: No caffeine: Yes Dental Care, Regularly: Yes Physical Activity Frequency: Daily Seatbelt Use: always Sunscreen Use: Yes Assistive Devices: None Review of Systems Review of Systems: All systems reviewed & are unremarkable except as noted in HPI & below Physical Exam Constitutional: well developed and well nourished; no acute distress Eyes: PERRL, conjunctivae normal, anicteric sclerae normal visual key by confrontation and EOM intact bilaterally (Without diplopia); no nystagmus ENMT: external ear and nose normal, oropharynx normal Neck: trachea midline, no thyromegaly Respiratory: normal respiratory effort, lungs clear to auscultation Cardiovascular: RRR, no murmur, no edema Gastrointestinal (Abdomen): normal bowel sounds, soft, nontender, no hepatosplenomegaly Musculoskeletal: no cyanosis or clubbing, extremities motor strength 5/5 Skin: no rashes, warm and dry Neurologic: CN's II-XI intact bilaterally, moves all extremities and awake; no focal motor deficits and not confused Speech / Cognition: normal speech Motor/Sensory: no tremor and no pronator drift Cranial Nerves: no nystagmus Unable to reproduce symptoms with Buckeye-Hallpike Psychiatric: A+Ox3, euthymic affect Genitourinary: no CVA tenderness Results & Data Results & Data ([facility]) Vital Signs (Past 12 Hours) Vital Signs Pulse Resp BP Pulse Ox 05/25/20 08:12 96 05/25/20 07:46 71 18 155/94 H [address] Head wo IV contrast: IMPRESSION: 1. Subacute versus chronic left caudate infarct. ECG Indication: other (Strokelike symptoms) Rate (beats per minute): 63 Rhythm: normal sinus Findings: no acute ischemic change Comparison ECG Date: from (July 14, 2017) Change: no significant change Code Status & VTE Plan Code Status Full VTE Prophylaxis Plan VTE Prophylaxis will be ordered: No PG Care Time/CCT Total # of Minutes Spent Total Time Spent with Patient: Total time spent is greater than 50% in coordination of care (as documented) at patient's floor/unit and/or counseling patient: Coding Level of Care Code 87990 OBS Care - Level 3 Diagnoses Vertigo R42 CVA (cerebral vascular accident) I63.9 CKD (chronic kidney disease) N18.9 Acid reflux disease with ulcer K21.9 Dyslipidemia E78.5 HTN (hypertension) I10 Hypertension type: essential hypertension (1) HTN (hypertension) Hypertension type: essential hypertension Qualified Code(s): I10 - Essential (primary) hypertension
[2020-05-25] MEDS ORDERED: GADOBUTROL 65ML VIAL IV ONE (13:09)
--- NOTE | 2020-05-25 13:41 | Magnetic Resonance Report ---
MRI OF THE BRAIN COMBO INTERNAL AUDITORY CANAL PROTOCOL CLINICAL HISTORY: Vertigo. COMPARISON STUDY: CT of the brain dated 05/25/2020. TECHNIQUE: MRI of the brain was performed utilizing various T1 and T2-weighted sequences in the axial , sagittal, and coronal planes. Contrast-enhanced sequences were acquired following the administratio n of 9 cc of Gadavist. Additional high-resolution imaging was performed through the skull base both p re and post contrast to assess the internal auditory canals. FINDINGS: Brain parenchyma: There is age-related involutional change noting mild subcortical and periventricula r microangiopathic disease. There is no hemorrhage or mass effect. There is no restricted diffusion t o suggest acute ischemia. No enhancing mass lesion is identified on the postcontrast images. Chronic lacunar infarcts are noted in the right cerebellar hemisphere and the left caudate head. Koenig-white m atter differentiation is preserved. No extra-axial fluid collection is seen. The cerebellar tonsils a re normal in configuration. Ventricles, sulci, and cisterns: Prominent secondary to involutional change. Internal auditory canals: No enhancing mass lesion is identified in the cerebellopontine angle. There is no mass or abnormal enhancement along the course of the internal auditory canals. The middle ear structures are normal as imaged. Pituitary and sella: Unremarkable. Intracranial vasculature: Normal flow voids are maintained at the skull base. Orbits: The bony orbits are grossly intact. Orbital contents are normal in appearance noting bilatera l ocular lens implants. Sinuses and mastoids: There is a 1.5 cm retention cyst and mild mucosal thickening in the left maxill caro antrum. The remaining paranasal sinuses are clear, as are the mastoid air cells. Calvarium: Unremarkable. Cervical cord: Partially visualized cervical spinal cord is normal in morphology and signal intensity . IMPRESSION: 1. No acute intracranial abnormality. 2. Unremarkable MRI of the internal auditory canals. ACT 112: Negative or not required by law. Electronically signed by: Adryan George M.D. 05/25/2020 1:40 PM
[2020-05-25] MEDS ORDERED: ACETAMINOPHEN 325 MG TAB PO PRN (13:53)
[2020-05-25] MEDS ORDERED: PHARMACIST DISCHARGE MED REC CONSULT PRN (13:53)
--- NOTE | 2020-05-25 14:53 | Neurology Consultation ---
Date of Consultation May 25, 2020 Assessment & Plan (1) CVA (cerebral vascular accident): David Smith is a 70 yo man w/ PMH of HTN, HLD, preDM, CKD, LVH, h/o kidney stones and h/o PMR/temporal arteritis who p/t [facility] with acute onset of positional blurry vision and vertigo/lightheadedness. 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, diffuse intracranial atherosclerosis, calcified plaque of bilateral carotid bifurcations, no LVO, high-grade stenosis or aneurysm noted - MRI brain: shows chronic infarcts in the right cerebellum and left caudate head - TTE: pending, will consider JAVI - Telemetry: pending - A1c: 5.9 - FLP: 104 - Troponin, TSH: negative, WNL Stroke Management: - Acute treatment: ASA - Continuous cardiac monitoring, recommend 30 day event monitor or loop recorder as outpatient if telemetry here unrevealing - Vitals, Neurochecks, NIHSS per unit routine - BP parameters: SBP CAP 220, hold home anti-hypertensives for permissive HTN, IV Labetalol/Hydralazine PRN - Complete ischemic stroke workup with TTE without bubble - Consult speech, PT, OT for supportive management - Will marriage counselor concerning stroke education, smoking cessation, healthy diet, ph ysical activity, weight loss - Follow up with PCP for assistance with outpatient goals (BP <130/80, LDL <70, A1c <7) - Follow up in neurology clinic in 6-8 weeks with [facility] Burns (I do not currently have any f/u spots in the near future) Secondary Stroke Prevention: - Antiplatelet: ASA 81mg po daily/plavix 75mg daily for 21 days, then just plavix 75mg daily - Anticoagulation: Not indicated at this time - Statin: Atorvastatin 40mg daily HTN: - BP parameters, as above - Hold home BP meds (diltiazem, metoprolol, telmisartan) for now in favor of permissive HTN FEN/GI: - Diet: Cardiac HH diet and PO meds given absence of bulbar signs or symptoms - Monitor lytes and replete PRN Glucose Control: - Sliding scale insulin and accuchecks per primary team to avoid hyperglycemia Vertigo: - Recommend PT evaluation with Kanwal jackson Thank you for this interesting consult. Plan of care was discussed with primary team. Please call with any questions. 60 minutes was spent [id number] with patient, with more than 50% spent on counseling/coordination of care/charting. (2) Vertigo: (3) HTN (hypertension): History of Present Illness Attending Physician: Ren Lloyd MD History of Present Illness David Smith is a 70 yo man w/ PMH of HTN, HLD, preDM, CKD, LVH, h/o kidney stones and h/o PMR/temporal arteritis who p/t [facility] with acute onset of positional blurry vision and vertigo/lightheadedness. JAVA SQL DEVELOPER ~ XXX. In the ED, he was afebrile, BP 155/94, heart rate 71, respiratory 18, satting 97% on room air. Labs notable for WBC 8.48, hemoglobin 14.7, platelets 190, electrolytes within normal, creatinine 1.24, glucose 129, calcium/magnesium/phosphorus within normal, LFTs within normal, troponin negative. Imaging independently reviewed. CT head shows no hemorrhage or hypodensity. 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 MRI brain shows chronic infarcts in the right cerebellum and left caudate head. On examination, he reports that he was in his normal state of health until this morning (05/25/20) when he was in the shower and noticed acute onset dizziness. He had a similar episode in the past with dizziness where he fell and hit his head, so he laid down on the shower floor and called for help. He endorses having N/V and positional worsening of the dizziness (described as room spinning), as well as difficulty ambulating while dizzy. Denies any palpitations, chest pain, tunnel vision. Called PCP who advised him to come in for further workup. Reports that symptoms have resolved for the most part at this point with no recurrence. Does take an aspirin 81mg daily at home. Denies h/o prior stroke like episodes in the past other than similar dizziness previously. Allergies Allergy/AdvReac Type Severity Reaction Status Date / Time No Known Allergies Allergy Verified 05/25/20 08:37 Home Medications Medication Instructions Recorded Confirmed Type amoxicillin 500 mg tablet 2,000 mg PO ONCE #4 tab 08/22/19 05/25/20 Rx aspirin [Adult Low Dose Aspirin] 81 mg PO QDD 05/25/20 05/25/20 History diltiazem HCl [Cartia XT] 300 mg PO QDD 05/25/20 05/25/20 History metoprolol succinate 25 mg PO QDD 05/25/20 05/25/20 History multivitamin 1 tab PO QDD 05/25/20 05/25/20 History pantoprazole 40 mg PO QDD 05/25/20 05/25/20 History rosuvastatin 5 mg PO QDD 05/25/20 05/25/20 History telmisartan 80 mg PO QDD 05/25/20 05/25/20 History Patient History Medical History Acid reflux disease with ulcer CKD (chronic kidney disease) Dyslipidemia HTN (hypertension) Hyperglycemia Low HDL (under 40) LVH (left ventricular hypertrophy) Metabolic syndrome Surgical History H/O inguinal hernia repair History of arthroplasty of right hip Family History Mother Cancer Sister Breast cancer Denies family history of Ovarian cancer Prostate cancer Lung cancer Colorectal cancer Social History Smoking Status: Never smoker Second Hand Exposure: No; Do You Dip or Chew Tobacco: No; Tobacco Cessation Education Requested by Patient: No Hx Alcohol Use: Yes (socially) Alcohol type: beer and wine Hx Substance Use: No Preferred Language: Nigerien Communication Ability: Effective Visual Impairment: No Limitations Hearing Ability: Normal 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 Exam (Neuro) Physical Exam: General Exam: GEN: NAD, sitting down in examination bed. HEENT: No conjunctival injection, no rhinorrhea. CV: RRR on monitor, no significant edema. PULM: Nonlabored respirations on room air. Neuro Exam: MS: Awake and Alert. Oriented to person, place, and date. Speech fluent and appropriate without dysarthria or paraphasic errors. Language intact including naming, comprehension, repetition. Cognition and memory grossly intact. Attention intact. No neglect. CN: Visual flores full, + blink to threat bilaterally. No extinction to double simultaneous stimuli. Unable to fully visualize fundi on fundoscopic exam. PERRLA OU. EOMI without nystagmus. Facial sensation intact to LT. Facial muscles full and symmetric. Hearing intact to finger rub bilaterally. Uvula midline with symmetric palatal elevation. Shoulder shrug normal. Tongue midline. MOTOR: Normal bulk and tone. No pronator drift. BUE strength 5/5 at deltoids, biceps, triceps, wrist flexors and extensors, and finger flexors bilaterally. BLE strength 5/5 at iliopsoas, hamstrings, quadriceps, tibialis anterior, and gastrocnemius bilaterally. REFLEXES: 1+ at biceps, triceps, brachioradialis, 1+ patella, and absent Achilles bilaterally. Flexor plantar responses bilaterally. SENSORY: Intact to LT/vibration throughout, no extinction to double simultaneous stimuli. COORDINATION: No dysmetria or ataxia on [id number] bilaterally. Normal Ember bilaterally. GAIT: Deferred due to physical status. NIH STROKE SCALE 1A. Level of Consciousness (0-3) = 0 1B. LOC Questions (0-2) = 0 1C. LOC Commands (0-2) = 0 2. Best Horizontal Gaze (0-2) = 0 3. Visual Flores (0-3) = 0 4. Facial Palsy (0-3) = 0 5. Motor Arm Right (0-4) = 0 Left (0-4) = 0 6. Motor Leg Right (0-4) = 0 Left (0-4) = 0 7. Limb Ataxia (0-2) = 0 8. Sensory (0-2) = 0 9. Best Language (0-3) = 0 10. Dysarthria (0-2) = 0 11. Extinction and Inattention (0-2) = 0 NIHSS TOTAL = 0 Results & Data ([facility]) Vital Signs (Past 12 Hours) Vital Signs Temp Pulse Pulse Resp BP BP Pulse Ox 05/25/20 13:51 36.5 C 73 16 152/99 H 97 05/25/20 11:30 67 18 157/100 H 96 05/25/20 11:00 60 17 146/85 H 94 05/25/20 08:30 68 21 148/92 H 95 05/25/20 08:13 75 22 154/94 H 95 05/25/20 08:12 71 16 152/84 H 97 05/25/20 07:58 64 15 144/86 H 96 05/25/20 07:46 71 18 155/94 H 97 PG Care Time/CCT Total # of Minutes Spent Total Time Spent with Patient: Total time spent is greater than 50% in coordination of care (as documented) at patient's floor/unit and/or counseling patient: Coding Level of Care Code 46277 Office/Outpt Visit, New Diagnoses CVA (cerebral vascular accident) I63.9 Vertigo R42 HTN (hypertension) I10 Hypertension type: essential hypertension (1) HTN (hypertension) Hypertension type: essential hypertension Qualified Code(s): I10 - Essential (primary) hypertension
--- NOTE | 2020-05-25 15:30 | Electrocardiogram Report ---
Test Reason : Blood Pressure : / mmHG Vent. Rate : 063 BPM Atrial Rate : 063 BPM P-R Int : 164 ms QRS Dur : 100 ms QT Int : 444 ms P-R-T Axes : 046 -17 012 degrees QTc Int : 454 ms Normal sinus rhythm Normal ECG When compared with ECG of 14-JUL-2017 08:54, No significant change was found Confirmed by Kip Ramos ([id number]) on 05/25/2020 3:29:35 PM Referred By: Curt Oquendo Confirmed By:Kip Ramos
[2020-05-25] MEDS ORDERED: ROSUVASTATIN CALCIUM 5 MG TAB PO SCH (16:30)
[2020-05-25] MEDS ORDERED: dilTIAZem HCL 300 MG CAPCR PO SCH (16:30)
[2020-05-25] MEDS ORDERED: MULTIVITAMIN TAB PO SCH (16:30)
[2020-05-25] MEDS ORDERED: ASPIRIN 81 MG ECTAB PO SCH (16:30)
[2020-05-25] MEDS ORDERED: PANTOprazole 40 MG TAB PO SCH (16:30)
[2020-05-25] MEDS ORDERED: METOPROLOL SUCC 25MG EXT REL TAB PO SCH (16:30)
[2020-05-25] MEDS ORDERED: TELMISARTAN 40 MG TAB PO SCH (16:30)
--- NOTE | 2020-05-25 16:42 | XCELERA ---
[id number]
[2020-05-26 07:18] LABS: Basophils # (auto) 0.02 K/uL (0-0.2); Basophils % (auto) 0.2 %; Eosinophils # (auto) 0.37 K/uL (0-0.5); Eosinophils % (auto) 4.5 %; Hemoglobin 14.4 g/dL (14.0-18.0); Immature Granulocytes # (auto) 0.02 K/uL (0.00-0.02); Immature Granulocytes % (auto) 0.2 %; Lymphocytes # (auto) 1.54 K/uL (1.2-3.4); Lymphocytes % (auto) 18.8 %; Mean Corpuscular Hemoglobin 30.4 pg (25-34); Mean Corpuscular Hgb Conc 34.3 g/dL (32-36); Mean Corpuscular Volume 88.8 fL (80-100); Mean Platelet Volume 9.8 fL (7.4-10.4); Monocytes # (auto) 0.84 K/uL (0.11-0.59); Monocytes % (auto) 10.3 %; Platelet Count 210 K/uL (130-400); RDW Coefficient of Variation 13.4 % (11.5-14.5); RDW Standard Deviation 43.7 fL (36.4-46.3); Red Blood Count 4.73 M/uL (4.7-6.1); White Blood Count 8.19 K/uL (4.8-10.8)
[2020-05-26 07:45] LABS: Estimated Average Glucose 120 mg/dl; Hemoglobin A1C 5.8 % (4.5-5.6)
[2020-05-26 07:46] LABS: BUN Creatinine Ratio 15.8 (10-20); Calcium 8.8 mg/dl (8.5-10.1); Creatinine Clr Calc Pharmacy 66.9 ml/min; Est GFR (African American) 73.8; Est GFR (Non-African American) 63.7; Potassium 3.7 mmol/L (3.5-5.1)
[2020-05-26] MEDS ORDERED: STROKE PATIENT DISCHARGE STA (10:00)
--- NOTE | 2020-05-26 10:22 | Discharge Summary ---
Date of Service May 26, 2020 Admission HPI Per Admitting Provider David Smith is a 70-year-old male who presents to the ER Got up to pee in middle of night, possibly wobbly at that time but fine to get to bathroom and get back to bed. Got up and felt normal, when he went into the shower after a short period of time, lightheaded dizzy wobbly. Had to bend down in the shower. Able to walk back to bed and when he lied down he felt weird. When he rolled to right side felt like the room was spinning. When went back to flat felt improved. Vertigo came back with nausea and blurred vision on rolling to the right again. Called Dr Garcia office and recommended. Associated frontal aching. No nasal congestion, shortness of breath. Associated diaphoresis Second COVID-19 vaccine on Thursday, generally not feeling well, felt feverish, tired, myalgias. on Thursday but felt fine yesterday. No prior episodes of vertigo. No ear fullness. Years of tinnitus - secondary to chronic ear infection. History of PMR and temporal arteritis. History of partially detached retina > 10 years ago. Principal Diagnosis Subacute CVA, right cerebellum Discharge Exam Constitutional WD/WN, vitals as above Eyes PERRL, conjunctivae normal, anicteric sclerae ENMT external ear and nose normal, oropharynx normal Neck trachea midline, no thyromegaly Respiratory normal respiratory effort, lungs clear to auscultation Cardiovascular RRR, no murmur, no edema Gastrointestinal (Abdomen) normal bowel sounds, soft, nontender, no hepatosplenomegaly Musculoskeletal no cyanosis or clubbing, extremities motor strength 5/5 Skin no rashes, warm and dry Neurologic patellar DTR's 2+ bilat, sensation intact and PERRL, EOMI, accommodation nl, no face palsy, no dysarthria Psychiatric A+Ox3, euthymic affect Lymphatic no cervical or axillary lymphadenopathy Discharge Data Allergies Allergy/AdvReac Type Severity Reaction Status Date / Time No Known Allergies Allergy Verified 05/25/20 08:37 Consultations 05/25/20 10:04 ED Decision to Admit Stat 05/25/20 13:53 Consult Case Management - Discharge Planning Routine Consult Neurology Routine Ordered Studies 05/25/20 08:12 CT angio head w con Stat CT angio neck with con Stat CT head/brain wo con Stat 05/25/20 11:47 MR brain IAC wo/w con Urgent Hospital Course (1) Vertigo: Suspect most likely BPPV but given subacute/chronic stroke on CT recommend full stroke work-up regarding this. MRI with IAC - no evidnece of schwannoma no vertigo at the time of discharge, provided with script for Meclizine 12.5mg to take PRN can follow up with PCP, says he is interested in seeing physician therapy in outpatient setting, his had some vertigo and it helped her (2) CVA (cerebral vascular accident): Subacute/chronic, MRI with evidence of right cerebellar strokes Complete full stroke work-up with observation on telemetry CT angiogram head and neck with some atherosclerosis but nothing severe hbA1c is at goal at 5.8%, no diabetes LDL is fairly well controlled at 94 on the 5mg of Crestor blood pressure is well controlled at home, he says he takes it once a week at home no evidence of afib on tele echo with normal EF, no evidence of intra-atrial shunt with bubble study secondary stroke prevention per neurology recommendations, Dr. 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 daily (5) Dyslipidemia: LDL close to goal at 94 neurology recommends changing to Lipitor 40mg daily if this does not agree with him, discussed that he and his PCP could just increase the Crestor to 10mg or 20mg (6) HTN (hypertension): Continue diltiazem 300 mg p.o. daily, metoprolol succinate 25 mg p.o. daily, telmisartan 80 mg p.o. daily Total Time Total Time Spent Total Time Spent (In Minutes): 35 minutes Total Time Includes: Examination of the Patient, Discharge Planning, Medication Reconciliation and Communication With Other Providers Discharge Plan Discharge Items Patient Disposition: Home - Self-Care Reason For Visit: STROKE-LIKE SYMPTOMS Discharge Diagnosis: Vertigo Subacute strokes in cerebellum Condition on Discharge: Good Goals: medical management arrange for 30 day event monitor to look for atrial fibrillation Activity: Resume your previous activity Non-emergency contact: Primary Care Provider and Neurologist Call non-emergency contact if: you have any medication questions and your symptoms worsen Follow-up/Referrals: Curt Oquendo MD [Primary Care Provider] - (one week) Diet: Heart Healthy Addtl Attending Provider Instructions: Medications: - PLAVIX: 75 mg daily, you will take this in addition to aspirin for 21 days and then you can stop the aspirin and just take Plavix - LIPITOR: 40mg daily, this is recommended by neurology for better stroke prevention Subacute stroke right cerebellum Dr. Smith, neurology, made the following recommendations for secondary stroke prevention (reduce risk of another stroke) aspirin and Plavix for 21 days, then use just Plavix indefinitely, this is antiplatelet therapy change Crestor to Lipitor 40mg for further lowering of LDL, your LDL is 94 and should ideally be below 70 with history of stroke continue current regimen for blood pressure control checked HbA1c, this was 5.8%, which is normal, you DO NOT have diabetes stroke work up: echocardiogram was normal, no evidence of an intra-atrial shunt or cardiac thrombus no arrhythmia on heart monitor, Dr. Smith would like you to have a 30 day event monitor to rule out asymptomatic atrial fibrillation, this will be mailed to you CT angiogram head and neck showed some plaque in large arteries in neck and brain, treat with antiplatelets and Lipitor Vertigo: recommend outpatient PT with Epply maneuvers can use Meclizine as needed for dizziness follow up closely with Dr. Oquendo in a week and neurology clinic in 6-8 weeks Risk Factors for Stroke: You can reduce your chances of stroke by working with your medical provider to adopt a healthy lifestyle. Some specific ways to lower your chance of stroke are: * If you are a smoker, now is the time to stop smoking cigarettes * If you are diabetic, improve the control of your blood sugars * Avoid excessive amounts of alcohol * Control high blood pressure * Lose weight if you are overweight * Be sure to lead an active lifestyle * Eat a healthy diet low in salt, cholesterol and fat You should know about other risk factors for stroke that you are unable to control. These include: * Age 55 years or older * Male gender * Certain racial groups: , or / * Family History of Stroke, Mini stroke or Heart Attack * Sickle Cell Disease Follow Up: It is important for you to keep your follow up appointments with your medical provider. Who to Call and When: Medical Emergencies: Call 911 immediately if you experience any of the following warning signs and symptoms of Stroke: * Sudden numbness or weakness of the face, arm or leg, especially on one side of the body * Sudden confusion, trouble speaking or understanding * Sudden trouble seeing in one or both eyes * Sudden trouble walking, dizziness, loss of balance or coordination * Sudden severe headache with no cause Do not delay calling 911 if you experience any warning signs or symptoms of a stroke. Delay in seeking medical attention may affect what treatments can be given to you. . Pending Studies at Discharge: No Stand-Alone Forms: Medications to Prevent Stroke, [facility], [facility], Smoking Cessation Medications and DC Order Prescriptions: New atorvastatin [Lipitor] 40 mg tablet 40 mg PO QDD Qty: 30 RF: 3 clopidogrel [Plavix] 75 mg tablet 75 mg PO QDD Qty: 30 RF: 3 meclizine 12.5 mg tablet 12.5 mg PO TID PRN (Reason: dizziness) Qty: 30 RF: 0 Continued amoxicillin 500 mg tablet 2,000 mg PO ONCE Qty: 4 RF: 2 multivitamin Tablet 1 tab PO QDD RF: 0 aspirin [Adult Low Dose Aspirin] 81 mg tablet,delayed release (DR/EC) 81 mg PO QDD RF: 0 diltiazem HCl [Cartia XT] 300 mg capsule,extended release 24hr 300 mg PO QDD RF: 0 pantoprazole 40 mg tablet,delayed release (DR/EC) 40 mg PO QDD RF: 0 telmisartan 80 mg tablet 80 mg PO QDD RF: 0 metoprolol succinate 25 mg tablet extended release 24 hr 25 mg PO QDD RF: 0 Discontinued rosuvastatin 5 mg tablet 5 mg PO QDD RF: 0 Discharge Orders: Discharge Order (Routine); Ordered 05/26/20 Ordered By: Stephon Mccoy Admission Data Admit Date/Time: 05/25/20 11:03 Attending Provider: Stephon Mccoy Admit Provider: Ren Lloyd Primary Care Provider: Curt Oquendo Other Providers: Stephon Mccoy ; Monie Smith Other Interventions: Discharge Summary Assessment (RN) Last Done: 05/26/20 10:46 Coding Level of Care Code 25606 OBS Care - Discharge Diagnoses Vertigo R42 CVA (cerebral vascular accident) I63.9 CVA mechanism: unspecified CKD (chronic kidney disease) N18.9 Acid reflux disease with ulcer K21.9 Dyslipidemia E78.5 HTN (hypertension) I10 Hypertension type: essential hypertension
--- NOTE | 2020-05-26 12:18 | Pharmacy Report ---
Pharmacist Stroke Counseling - Date of Service May 26, 2020 - Scope: Pharmacy has been consulted to provide medication discharge counseling for this patient admitted with ischemic stroke as per the Pharmacist Discharge Counseling for Stroke Patients Protocol. - Medications on Discharge: Home Medications Medication Instructions Recorded Confirmed aspirin [Adult Low Dose Aspirin] 81 mg PO QDD 05/25/20 05/25/20 diltiazem HCl [Cartia XT] 300 mg PO QDD 05/25/20 05/25/20 metoprolol succinate 25 mg PO QDD 05/25/20 05/25/20 multivitamin 1 tab PO QDD 05/25/20 05/25/20 pantoprazole 40 mg PO QDD 05/25/20 05/25/20 telmisartan 80 mg PO QDD 05/25/20 05/25/20 New Rx's Medication Instructions Recorded amoxicillin 500 mg tablet 2,000 mg PO ONCE #4 tab 08/22/19 atorvastatin [Lipitor] 40 mg PO QDD #30 tab 05/26/20 clopidogrel [Plavix] 75 mg PO QDD #30 tab 05/26/20 meclizine 12.5 mg PO TID PRN #30 tab 05/26/20 - Action: The above medications, specifically ones for stroke treatment/prophylaxis, have been reviewed in detail with the patient and/or patient branch customer service representative(s) prior to discharge. This includes indication, common adverse reactions, drug interactions, and medication administration. Medication counseling has been employed using the teach-back method to ensure understanding. - Outcome: The patient and/or patient branch customer service representative(s) have demonstrated understanding of the medications. Additional comments: - Reinforced instructions for dual antiplatelet therapy; take both ASA and plavix x 21 days, the stop ASA and continue plavix. Patient expressed understanding. - Reviewed signs and symptoms of bleeding with antiplatelet use. In the event of a planned dental procedure/surgery, stressed to the patient the importance of notifying the proceduralist that he takes these medications. - Reminded patient that new prescription for lipitor is to replace crestor. David said Dr. Mccoy talked to him extensively about this. Thank you for allowing pharmacy to be involved in the care of this patient. Please call [phone] with any additional questions
== END 2020-05-26 10:55 | disposition home or self-care (01) ==
LOC: 2E 07:44 → ED 07:44 → SUATTDRO 11:03 → 2E 13:12

== ENCOUNTER 2021-06-17 21:01 | Inpatient (IN) ==
[2021-06-17] MEDS ORDERED: NITROGLYCERIN SL 0.4 MG/TAB TAB SL PRN (21:37)
[2021-06-17] MEDS ORDERED: ASPIRIN CHEW 324 MG PO STA (21:37)
--- NOTE | 2021-06-17 21:41 | Emergency Department Note ---
History of Present Illness General Chief complaint: Chest Pain Stated complaint: CHEST PAIN, L ARM FEELING NUMB Time Seen by Provider: 06/17/21 21:32 Source: patient History of Present Illness Provider complaint: Chest pain Onset (ago): hour(s) Location: chest and left Radiation: extremity (Left arm) Pain Consistency: + constant Maximum Pain Intensity: 5 Quality: + other (Pressure) Relieved By: + none Associated symptoms: + chest pain and + shortness of breath; no cough, no diapho resis, no fever/chills or no nausea/vomiting This is a 71-year-old male who presents with chest pain starting several hours ago. He describes it as a pressure on the left side of his chest with radiation to his left arm. He has associated shortness of breath. He rates it a 5 out of 10 in severity. No modifying factors. He denies any diaphoresis but does state he was sweating lightly when it happened. He was not doing anything in particular when it started. He denies any recent illness, fever, cough or cold symptoms, abdominal pain, vomiting, diarrhea, urinary symptoms or leg swelling or pain. Home Medications Medication Instructions Recorded Confirmed Type amoxicillin 500 mg tablet 2,000 mg PO ONCE #4 tab 09/13/20 06/17/21 Rx aspirin 81 mg tablet,delayed 81 mg PO DAILY tab 04/03/21 06/17/21 History release (Adult Low Dose Aspirin) diltiazem HCl 300 mg 300 mg PO DAILY cap 04/03/21 06/17/21 History capsule,extended release 24 hr (Cartia XT) meclizine 12.5 mg tablet 12.5 mg PO DAILY PRN tab 04/03/21 06/17/21 History multivitamin 1 tab PO DAILY tab 04/03/21 06/17/21 History pantoprazole 40 mg tablet,delayed 40 mg PO ONCE tab 04/03/21 06/17/21 History release telmisartan 80 mg tablet 80 mg PO DAILY tab 04/03/21 06/17/21 History rosuvastatin 10 mg tablet 10 mg PO DAILY #90 tab 05/09/21 06/17/21 Rx nebivolol 5 mg tablet (Bystolic) 5 mg PO DAILY #90 tab 06/12/21 06/17/21 Rx Allergies Allergy/AdvReac Type Severity Reaction Status Date / Time No Known Drug Allergies Allergy Verified 06/17/21 22:51 Past Med/Surg History Medical History Acid reflux disease with ulcer CKD (chronic kidney disease) COVID-19 vaccine series started Dehydration Dyslipidemia HTN (hypertension) Hyperglycemia Low HDL (under 40) LVH (left ventricular hypertrophy) Metabolic syndrome Sensorineural hearing loss of both ears Vertigo Surgical History H/O inguinal hernia repair History of arthroplasty of right hip Family History Mother Cancer Sister Breast cancer Other No family history of adverse response to anesthesia No family history of bleeding disorder Denies family history of Ovarian cancer Prostate cancer Myocardial infarction Lung cancer Colorectal cancer Stroke Social History Smoking Status: Never smoker Second Hand Exposure: No; Hx Alcohol Use: Yes (socially) Alcohol type: beer and wine Hx Substance Use: No Preferred Language: Estonian Communication Ability: Effective Visual Impairment: No Limitations Hearing Ability: Normal Him Director Required: No Beliefs That Will Affect Care: None marital status: Current Living Situation: Spouse current occupational status: retired How many Children do You have: 2 Feels Safe at Home: Yes Childhood Exposure to Second-Hand Smoke: No caffeine: Yes Dental Care, Regularly: Yes Physical Activity Frequency: Daily Seatbelt Use: always Sunscreen Use: Yes Assistive Devices: None Review of Systems See HPI for pertinent positives & negatives. and A total of 10 systems reviewed and were otherwise negative Physical Exam Vital Signs Vital Signs - 24 hr 06/17/21 21:06 06/17/21 21:15 06/17/21 21:37 Temperature 36.3 C L Temperature Source Temporal Artery Scan Pulse Rate 96 H 77 Pulse Rate [Apical] Respiratory Rate 20 12 Respiratory Effort / Characteristics Non-Labored Spontaneous Respiratory Depth Normal Blood Pressure 193/119 H Blood Pressure [Right Arm] Blood Pressure Mean 143 Blood Pressure Mean [Right Arm] Pulse Oximetry 97 95 Oxygen Delivery Method Room Air Room Air Room Air Fraction of Inspired Oxygen 95 Sepsis New/Unexplained Change in Mental Status N/A Sepsis Action Taken by Nursing No Action Required 06/17/21 23:00 Temperature Temperature Source Pulse Rate Pulse Rate [Apical] 74 Respiratory Rate 16 Respiratory Effort / Characteristics Respiratory Depth Blood Pressure Blood Pressure [Right Arm] 167/100 H Blood Pressure Mean Blood Pressure Mean [Right Arm] 122 Pulse Oximetry 95 Oxygen Delivery Method Room Air Fraction of Inspired Oxygen Sepsis New/Unexplained Change in Mental Status Sepsis Action Taken by Nursing Constitutional: Vital signs reviewed. Eyes: Pupils are equal round reactive to light. Conjunctiva are noninjected. ENT: Pharynx is clear without erythema or exudate. Mucous membranes are moist. Neck supple without meningeal signs. Respiratory: Clear to auscultation bilaterally. Breath sounds are equal bilaterally. Cardiovascular: Regular rate and rhythm. No rubs or gallops. GI: Soft, nondistended and nontender. Bowel sounds are present. Musculoskeletal: No peripheral edema. No lower extremity tenderness. Integumentary: No cyanosis. or jaundice. Neurological: The patient is awake and alert. No focal deficits. Psychiatric: Normal affect. Not anxious appearing. Course Administered Medications Nitroglycerin (Nitroglycerin Sl 0.4 Mg/Tab Tab) 0.4 mg SL UD PRN PRN Reason: Chest Pain Stop: 07/17/21 21:36 Last Admin: 06/17/21 22:04 Dose: 0.4 mg Documented by: [id number] Discontinued Medications Aspirin (Aspirin Chew 324 Mg) 324 mg PO NOW STA Stop: 06/17/21 21:38 Last Admin: 06/17/21 22:04 Dose: 324 mg Documented by: [id number] Nitroglycerin (Nitroglycerin 2% Ointment 30gm Tube) 1 inch EXT NOW ONE Stop: 06/17/21 22:18 Last Admin: 06/17/21 22:29 Dose: 1 inch Documented by: [id number] Medical Decision Making Differential Diagnosis Unstable angina, OK, pleurisy, GERD, anxiety Medical Records Attestation: I reviewed the patient's medical records. I did perform a limited focused review of portions of the patient's old chart on the electronic medical record. The patient has had no recent pertinent visits to this hospital. Home Medications Current Medication List: was personally reviewed by me Laboratory Data Attestation: I reviewed the patient's lab results. Result diagrams: 06/17/21 21:19 06/17/21 21:19 Lab Results 06/17/21 06/17/21 06/17/21 Range/Units 21:19 21:19 21:57 WBC 10.21 (4.8-10.8) K/uL RBC 4.92 (4.7-6.1) M/uL Hgb 15.4 (14.0-18.0) g/dL Hct 42.9 (42-52) % MCV 87.2 (80-100) fL MCH 31.3 (25-34) pg MCHC 35.9 (32-36) g/dL RDW Std Deviation 42.7 (36.4-46.3) fL RDW Coeff of [place] 13.4 (11.5-14.5) % Plt Count 265 (130-400) K/uL MPV 10.3 (7.4-10.4) fL Immature Gran % (Auto) 0.1 % Neut % (Auto) 61.4 % Lymph % (Auto) 22.6 % [place] % (Auto) 12.4 % Eos % (Auto) 3.3 % Baso % (Auto) 0.2 % Neut # (Auto) 6.26 (1.4-6.5) K/uL Lymph # (Auto) 2.31 (1.2-3.4) K/uL [place] # (Auto) 1.27 H (0.11-0.59) K/uL Eos # (Auto) 0.34 (0-0.5) K/uL Baso # (Auto) 0.02 (0-0.2) K/uL Immature Gran # (Auto) 0.01 (0.00-0.02) K/uL Sodium 139 (136-145) mmol/L Potassium 3.6 (3.5-5.1) mmol/L Chloride 106 (98-107) mmol/L Carbon Dioxide 26 (21-32) mmol/L Anion Gap 7 (3-11) BUN 17 (6-23) mg/dl Creatinine 1.13 (0.6-1.4) mg/dl Est Cr Clr Drug Dosing 64.9 ml/min Est GFR ( Amer) 74.8 ml/min Est GFR (Non-Af Amer) 64.6 ml/min BUN/Creatinine Ratio 15.0 (10-20) Glucose 115 H (70-99(Fasting)) mg/dl Calcium 9.4 (8.5-10.1) mg/dl Total Bilirubin 0.5 (0.2-1.0) mg/dl AST 25 (13-39) U/L ALT 27 (7-52) U/L Alkaline Phosphatase 94 (34-104) U/L Troponin I 0.03 (0-0.04) ng/ml Total Protein 7.4 (6.0-8.3) gm/dl Albumin 4.6 (3.4-5.0) gm/dl Globulin 2.8 (2.5-4.0) gm/dl Albumin/Globulin Ratio 1.6 (0.9-2) Lipase 36 (11-82) U/L SARS-CoV-2, RNA, NAAT NEGATIVE (NEGATIVE) Imaging Data Attestation: I personally reviewed and interpreted this imaging study as follows: My Impression: Chest x-ray per my interpretation shows no acute cardiopulmonary process. ECG Data Attestation: I personally reviewed and interpreted this ECG as follows: Indication: + chest pain Rate (beats per minute): 85 Rhythm: + normal sinus ECG Intervals/blocks: + Incomplete right bundle branch block ECG [place]: + Left axis deviation ECG ST segments: no ST elevation ECG Findings: + Other (Limited interpretation due to motion artifact.); no PVCs Comparison ECG Date: from (May 25, 2020) Change: no significant change MDM Narrative I did evaluate the patient as noted above. He is presenting with chest pressure rating to his left arm. IV access was established. I did place an order for continuous cardiac monitoring. The monitor showed normal sinus rhythm at a rate of 90 bpm. I did order and personally review the patient's 12-lead EKG as described above. He has no acute ischemic changes I did order and personally reviewed the images of the patient's chest x-ray as described above. There is no evidence of pneumonia. I did order and review the patient's blood work as noted in the electronic medical record. CBC is unremarkable without leukocytosis or anemia. Electrolytes and LFTs are unremarkable. Troponin is 0.03. The patient is severely hypertensive. He was given nitroglycerin sublingually as well as an aspirin. On reevaluation his blood pressure is i mproved. His chest pain is completely resolved. I did discuss the test results with him. I did recommend hospitalization for repeat cardiac biomarkers and further evaluation. I did order a Covid test which was negative. I did discuss the case with the hospitalist and correctional case records supervisor. Impression & Plan Hypertensive emergency, Acute chest pain Discharge Plan Visit Data Chief Complaint: Chest Pain Stated Complaint: CHEST PAIN, L ARM FEELING NUMB ED Provider: Darius Suarez Discharge Problem: Hypertensive emergency, Acute chest pain Patient Disposition: Being Evaluated by Hospitalist Forms Stand Alone Forms: [facility] Prescriptions Prescriptions: No Action amoxicillin 500 mg tablet 2,000 mg PO ONCE Qty: 4 RF: 2 rosuvastatin 10 mg tablet 10 mg PO DAILY Qty: 90 RF: 3 nebivolol [Bystolic] 5 mg tablet 5 mg PO DAILY Qty: 90 RF: 2 diltiazem HCl [Cartia XT] 300 mg capsule,extended release 24hr 300 mg PO DAILY RF: 0 meclizine 12.5 mg tablet 12.5 mg PO DAILY PRN (Reason: Vertigo) RF: 0 pantoprazole 40 mg tablet,delayed release (DR/EC) 40 mg PO ONCE RF: 0 telmisartan 80 mg tablet 80 mg PO DAILY RF: 0 aspirin [Adult Low Dose Aspirin] 81 mg tablet,delayed release (DR/EC) 81 mg PO DAILY RF: 0 multivitamin Tablet 1 tab PO DAILY RF: 0 Referrals Referrals: Curt Oquendo MD [Primary Care Provider] -
[2021-06-17 21:48] LABS: Basophils # (auto) 0.02 K/uL (0-0.2); Basophils % (auto) 0.2 %; Eosinophils # (auto) 0.34 K/uL (0-0.5); Eosinophils % (auto) 3.3 %; Hematocrit (blood only) 42.9 % (42-52); Hemoglobin 15.4 g/dL (14.0-18.0); Immature Granulocytes # (auto) 0.01 K/uL (0.00-0.02); Immature Granulocytes % (auto) 0.1 %; Lymphocytes # (auto) 2.31 K/uL (1.2-3.4); Lymphocytes % (auto) 22.6 %; Mean Corpuscular Hemoglobin 31.3 pg (25-34); Mean Corpuscular Hgb Conc 35.9 g/dL (32-36); Mean Corpuscular Volume 87.2 fL (80-100); Mean Platelet Volume 10.3 fL (7.4-10.4); Monocytes # (auto) 1.27 K/uL (0.11-0.59); Monocytes % (auto) 12.4 %; Neutrophils # (auto) 6.26 K/uL (1.4-6.5); Neutrophils % (auto) 61.4 %; Platelet Count 265 K/uL (130-400); RDW Coefficient of Variation 13.4 % (11.5-14.5); RDW Standard Deviation 42.7 fL (36.4-46.3); Red Blood Count 4.92 M/uL (4.7-6.1); White Blood Count 10.21 K/uL (4.8-10.8)
[2021-06-17 21:57] LABS: Albumin Globulin Ratio 1.6 (0.9-2); Albumin Level 4.6 gm/dl (3.4-5.0); Bilirubin,Total 0.5 mg/dl (0.2-1.0); Calcium 9.4 mg/dl (8.5-10.1); Creatinine Clr Calc Pharmacy 64.9 ml/min; Est GFR (African American) 74.8 ml/min; Est GFR (Non-African American) 64.6 ml/min; Globulin 2.8 gm/dl (2.5-4.0); Potassium 3.6 mmol/L (3.5-5.1); Total Protein 7.4 gm/dl (6.0-8.3)
[2021-06-17 21:59] LABS: Troponin I 0.03 ng/ml (0-0.04)
[2021-06-17] MEDS ORDERED: NITROGLYCERIN 2% OINTMENT 30GM TUBE EXT ONE (22:17)
--- NOTE | 2021-06-17 23:42 | History & Physical Report ---
Date of Service June 17, 2021 Assessment & Plan (1) Acute chest pain: Plan: 71yo male with history of HTN, HLP, prior CVA, coronary calcifications presenting with acute onset left sided chest discomfort that occurred at rest, relieved with Nitro. HEART Score=4. EKG with partial RBB, unchanged. Troponin=0.03 -Observation to medical with telemetry -Trend troponin q 6 hours x 3 -EKG as needed with chest pain -Nitro and Morphine as needed with chest pain (2) HTN (hypertension): Plan: Blood pressure markedly elevated on arrival. ?hypertensive crisis as cause of discomfort. Now improved. -Continue home agents, Telmisartan 80mg daily, Nebivolol 5mg daily (started for high heart rate) and Diltiazem -Continue to monitor (3) Acid reflux disease with ulcer: Plan: Chronic. Well controlled with medication -Continue Protonix (4) Dyslipidemia: Plan: Chronic. Well controlled on medication -Continue Crestor (5) CVA (cerebral vascular accident): Plan: No residual deficits -Continue ASA 81mg po daily -Continue Crestor Plan: F/E/N - Heplock. Check Mg and replete as needed. NPO for now Ppx - low risk for DVT Code - Full per discussion with patient Dispo - Observation to medical with telemetry History of Present Illness Chief Complaint: chest pain Primary Care Provider: Curt Oquendo MD David Smith is a pleasant 71yo male with history of HTN, HLP, prior CVA, presenting with acute chest pain. Patient was in his usual state of health this evening. He was at home resting when he had acute onset of left chest discomfort. Discomfort 6/10 in severity, pressure with radiation and numbness down the left arm. No associated diaphoresis/nausea/SOB/dizziness/palpitations. He did have a headache as well. Patient called EMS. Upon arrival to the ER patient hypertensive at 193/119. He was administered Nitro 0.4mg x 1 and had nitro paste placed. ASA 324mg. Chest pain relieved Patient presently feels well. Chest pain has resolved. Still with mild WEBSTER. Reports his blood pressure is very well controlled typically. His presenting pressure of 193/119 is very atypical. Patient is active and independent. He trains horses 3 days/week. No CP/SOB that limits activity. He denies recent injury or change in activity. He has no known cardiac disease. He has had a CVA and has <50% atherosclerosis of carotids. No prior catheterizations. He had a stress test many years ago. Prior echo 05/25/20 - normal EF of 55-60%, no WMA, mild LVH ER Course: Nitro 0.4mg, Nitro paste x 1 inch, ASA 324mg Allergies Allergy/AdvReac Type Severity Reaction Status Date / Time No Known Drug Allergies Allergy Verified 06/17/21 22:51 Home Medications Medication Instructions Recorded Confirmed Type amoxicillin 500 mg tablet 2,000 mg PO ONCE #4 tab 09/13/20 06/17/21 Rx aspirin 81 mg tablet,delayed 81 mg PO DAILY tab 04/03/21 06/17/21 History release (Adult Low Dose Aspirin) diltiazem HCl 300 mg 300 mg PO DAILY cap 04/03/21 06/17/21 History capsule,extended release 24 hr (Cartia XT) meclizine 12.5 mg tablet 12.5 mg PO DAILY PRN tab 04/03/21 06/17/21 History multivitamin 1 tab PO DAILY tab 04/03/21 06/17/21 History pantoprazole 40 mg tablet,delayed 40 mg PO ONCE tab 04/03/21 06/17/21 History release telmisartan 80 mg tablet 80 mg PO DAILY tab 04/03/21 06/17/21 History rosuvastatin 10 mg tablet 10 mg PO DAILY #90 tab 05/09/21 06/17/21 Rx nebivolol 5 mg tablet (Bystolic) 5 mg PO DAILY #90 tab 06/12/21 06/17/21 Rx Past Med/Surg History Medical History Acid reflux disease with ulcer CKD (chronic kidney disease) COVID-19 vaccine series started Dehydration Dyslipidemia HTN (hypertension) Hyperglycemia Low HDL (under 40) LVH (left ventricular hypertrophy) Metabolic syndrome Sensorineural hearing loss of both ears Vertigo Surgical History H/O inguinal hernia repair History of arthroplasty of right hip Family History Mother Cancer Sister Breast cancer Other No family history of adverse response to anesthesia No family history of bleeding disorder Denies family history of Ovarian cancer Prostate cancer Myocardial infarction Lung cancer Colorectal cancer Stroke Social History Smoking Status: Never smoker Second Hand Exposure: No; Hx Alcohol Use: Yes (socially) Alcohol type: beer and wine Hx Substance Use: No Preferred Language: Swedish Communication Ability: Effective Visual Impairment: No Limitations Hearing Ability: Normal Cloth Mercerizing Supervisor Required: No Beliefs That Will Affect Care: None marital status: Current Living Situation: Spouse current occupational status: retired How many Children do You have: 2 Feels Safe at Home: Yes Childhood Exposure to Second-Hand Smoke: No caffeine: Yes Dental Care, Regularly: Yes Physical Activity Frequency: Daily Seatbelt Use: always Sunscreen Use: Yes Assistive Devices: None Review of Systems Review of Systems: All systems reviewed & are unremarkable except as noted in HPI & below Physical Exam Physical Exam: General: patient resting comfortably, NAD, non-toxic in appearance, AA&O x 4 Skin: warm, dry, intact, no rashes or lesions HEENT: NC/AT, PERRL, EOMI, anicteric sclera, conjunctiva without injection, external ear normal to inspection and nontender, nares patent, moist mucus membranes, dentition intact, no oropharyngeal lesions, neck supple, trachea midline, no LAD, no thyromegaly, no JVD Heart: +S1/S2, regular, no m/r/g, no reproducible chest wall pain Lungs: equal air entry bilaterally, no rales/rhonchi/wheezes Abd: +BS, soft, NT/ND, no masses/organomegaly/ascites Ext: warm, 2+ pulses in UE/LE bilaterally, no clubbing/cyanosis or edema Neuro: nonfocal, patient AA&O x 4, speech intact, no facial droop, moving all extremities on command with equal strength 5/5 Results & Data Results & Data ([facility]) Vital Signs (Past 12 Hours) Vital Signs Temp Pulse Pulse Resp BP BP Pulse Ox 06/17/21 23:00 74 16 167/100 H 95 06/17/21 21:37 77 12 95 06/17/21 21:06 36.3 C L 96 H 20 193/119 H 97 Laboratory Results Laboratory Results WBC 10.21 K/uL (4.8-10.8) 06/17/21 21:19 RBC 4.92 M/uL (4.7-6.1) 06/17/21 21:19 Hgb 15.4 g/dL (14.0-18.0) 06/17/21 21:19 Hct 42.9 % (42-52) 06/17/21 21:19 MCV 87.2 fL (80-100) 06/17/21 21:19 MCH 31.3 pg (25-34) 06/17/21 21: MCHC 35.9 g/dL (32-36) 06/17/21 21:19 RDW Std Deviation 42.7 fL (36.4-46.3) 06/17/21 21: RDW Coeff of Augustus 13.4 % (11.5-14.5) 06/17/21 21:19 Plt Count 265 K/uL (130-400) 06/17/21 21:19 MPV 10.3 fL (7.4-10.4) 06/17/21 21:19 Immature Gran % (Auto) 0.1 % 06/17/21 21:19 Neut % (Auto) 61.4 % 06/17/21 21:19 Lymph % (Auto) 22.6 % 06/17/21 21:19 Kern % (Auto) 12.4 % 06/17/21 21:19 Eos % (Auto) 3.3 % 06/17/21 21:19 Baso % (Auto) 0.2 % 06/17/21 21:19 Neut # (Auto) 6.26 K/uL (1.4-6.5) 06/17/21 21:19 Lymph # (Auto) 2.31 K/uL (1.2-3.4) 06/17/21 21:19 Kern # (Auto) 1.27 K/uL (0.11-0.59) H 06/17/21 21:19 Eos # (Auto) 0.34 K/uL (0-0.5) 06/17/21 21:19 Baso # (Auto) 0.02 K/uL (0-0.2) 06/17/21 21:19 Immature Gran # (Auto) 0.01 K/uL (0.00-0.02) 06/17/21 21:19 Sodium 139 mmol/L (136-145) 06/17/21 21:19 Potassium 3.6 mmol/L (3.5-5.1) 06/17/21 21:19 Chloride 106 mmol/L (98-107) 06/17/21 21:19 Carbon Dioxide 26 mmol/L (21-32) 06/17/21 21:19 Anion Gap 7 (3-11) 06/17/21 21:19 BUN 17 mg/dl (6-23) 06/17/21 21:19 Creatinine 1.13 mg/dl (0.6-1.4) 06/17/21 21:19 Est Cr Clr Drug Dosing 64.9 ml/min 06/17/21 21:19 Est GFR ( Amer) 74.8 ml/min 06/17/21 21:19 Est GFR (Non-Af Amer) 64.6 ml/min 06/17/21 21:19 BUN/Creatinine Ratio 15.0 (10-20) 06/17/21 21:19 Glucose 115 mg/dl (70-99(Fasting)) H 06/17/21 21:19 Calcium 9.4 mg/dl (8.5-10.1) 06/17/21 21:19 Total Bilirubin 0.5 mg/dl (0.2-1.0) 06/17/21 21:19 AST 25 U/L (13-39) 06/17/21 21:19 ALT 27 U/L (7-52) 06/17/21 21:19 Alkaline Phosphatase 94 U/L (34-104) 06/17/21 21:19 Troponin I 0.03 ng/ml (0-0.04) 06/17/21 21:19 Total Protein 7.4 gm/dl (6.0-8.3) 06/17/21 21:19 Albumin 4.6 gm/dl (3.4-5.0) 06/17/21 21:19 Globulin 2.8 gm/dl (2.5-4.0) 06/17/21 21:19 Albumin/Globulin Ratio 1.6 (0.9-2) 06/17/21 21:19 Lipase 36 U/L (11-82) 06/17/21 21:19 SARS-CoV-2, RNA, NAAT NEGATIVE (NEGATIVE) 06/17/21 21:57 ECG Additional Comments: EKG with NSR at 85, incomplete RBBB, OY=305, QRS=96, GJe=141, no acute ischemic changes Code Status & VTE Plan VTE Prophylaxis Plan VTE Prophylaxis will be ordered: Yes PG Care Time/CCT Total # of Minutes Spent Total Time Spent with Patient: Total time spent is greater than 50% in coordination of care (as documented) at patient's floor/unit and/or counseling patient: Coding Level of Care Code INT OBSERVATION CARE 50M LVL 2 Diagnoses Acute chest pain R07.9 Acid reflux disease with ulcer K21.9 Dyslipidemia E78.5 HTN (hypertension) I10 Hypertension type: essential hypertension CVA (cerebral vascular accident) I63.9 CVA mechanism: unspecified (1) HTN (hypertension) Hypertension type: essential hypertension Qualified Code(s): I10 - Essential (primary) hypertension (2) CVA (cerebral vascular accident) CVA mechanism: unspecified Qualified Code(s): I63.9 - Cerebral infarction, unspecified
[2021-06-18] MEDS ORDERED: MoRPHine SULFATE 2 MG/ML CARP IV PRN (00:28)
[2021-06-18] MEDS ORDERED: ACETAMINOPHEN 325 MG TAB PO PRN (00:28)
[2021-06-18] MEDS ORDERED: ONDANSETRON INJ 2 MG/ML 2 ML VIAL IV PRN (00:28)
--- NOTE | 2021-06-18 07:23 | XRay Report ---
XR chest 1V portable CLINICAL HISTORY: Atypical chest pain TECHNIQUE: Single frontal radiograph of the chest was obtained. Comparison: Comparison is made to chest 2 views 01/24/2021 FINDINGS: No lines and tubes are seen. Calcified aortic knob is seen. Lungs are underinflated but clear. No denae dence of pleural effusion or pneumothorax. IMPRESSION: No acute chest disease. ACT 112: Negative or not required by law. Electronically signed by: Stephon Brown M.D. 06/18/2021 7:21 AM
[2021-06-18 07:46] LABS: Basophils # (auto) 0.01 K/uL (0-0.2); Basophils % (auto) 0.1 %; Eosinophils # (auto) 0.24 K/uL (0-0.5); Eosinophils % (auto) 2.2 %; Hematocrit (blood only) 38.7 % (42-52); Hemoglobin 13.7 g/dL (14.0-18.0); Immature Granulocytes # (auto) 0.02 K/uL (0.00-0.02); Immature Granulocytes % (auto) 0.2 %; Lymphocytes # (auto) 1.77 K/uL (1.2-3.4); Lymphocytes % (auto) 16.4 %; Mean Corpuscular Hemoglobin 30.9 pg (25-34); Mean Corpuscular Hgb Conc 35.4 g/dL (32-36); Mean Corpuscular Volume 87.4 fL (80-100); Mean Platelet Volume 9.9 fL (7.4-10.4); Monocytes # (auto) 1.06 K/uL (0.11-0.59); Monocytes % (auto) 9.8 %; Neutrophils # (auto) 7.72 K/uL (1.4-6.5); Neutrophils % (auto) 71.3 %; Platelet Count 225 K/uL (130-400); RDW Coefficient of Variation 13.4 % (11.5-14.5); RDW Standard Deviation 42.9 fL (36.4-46.3); Red Blood Count 4.43 M/uL (4.7-6.1); White Blood Count 10.82 K/uL (4.8-10.8)
[2021-06-18 08:15] LABS: BUN Creatinine Ratio 15.5 (10-20); Calcium 9.1 mg/dl (8.5-10.1); Creatinine Clr Calc Pharmacy 66.7 ml/min; Est GFR (African American) 77.3 ml/min; Est GFR (Non-African American) 66.7 ml/min; Potassium 3.8 mmol/L (3.5-5.1)
--- NOTE | 2021-06-18 08:18 | Discharge Summary ---
Date of Service June 18, 2021 Admission HPI Per Admitting Provider David Smith is a pleasant 71yo male with history of HTN, HLP, prior CVA, presenting with acute chest pain. Patient was in his usual state of health this evening. He was at home resting when he had acute onset of left chest discomfort. Discomfort 6/10 in severity, pressure with radiation and numbness down the left arm. No associated diaphoresis/nausea/SOB/dizziness/palpitations. He did have a headache as well. Patient called EMS. Upon arrival to the ER patient hypertensive at 193/119. He was administered Nitro 0.4mg x 1 and had nitro paste placed. ASA 324mg. Chest pain relieved Patient presently feels well. Chest pain has resolved. Still with mild WEBSTER. Reports his blood pressure is very well controlled typically. His presenting pressure of 193/119 is very atypical. Patient is active and independent. He trains horses 3 days/week. No CP/SOB that limits activity. He denies recent injury or change in activity. He has no known cardiac disease. He has had a CVA and has <50% atherosclerosis of carotids. No prior catheterizations. He had a stress test many years ago. Prior echo 05/25/20 - normal EF of 55-60%, no WMA, mild LVH ER Course: Nitro 0.4mg, Nitro paste x 1 inch, ASA 324mg Discharge Data Allergies Allergy/AdvReac Type Severity Reaction Status Date / Time No Known Drug Allergies Allergy Verified 06/17/21 22:51 Consultations 06/17/21 22:35 ED Decision to Admit Stat Discharge Plan Discharge Items Reason For Visit: CHEST PAIN Follow-up/Referrals: Curt Oquendo MD [Primary Care Provider] - Medications and DC Order Prescriptions: No Action amoxicillin 500 mg tablet 2,000 mg PO ONCE Qty: 4 RF: 2 rosuvastatin 10 mg tablet 10 mg PO DAILY Qty: 90 RF: 3 nebivolol [Bystolic] 5 mg tablet 5 mg PO DAILY Qty: 90 RF: 2 diltiazem HCl [Cartia XT] 300 mg capsule,extended release 24hr 300 mg PO DAILY RF: 0 meclizine 12.5 mg tablet 12.5 mg PO DAILY PRN (Reason: Vertigo) RF: 0 pantoprazole 40 mg tablet,delayed release (DR/EC) 40 mg PO ONCE RF: 0 telmisartan 80 mg tablet 80 mg PO DAILY RF: 0 aspirin [Adult Low Dose Aspirin] 81 mg tablet,delayed release (DR/EC) 81 mg PO DAILY RF: 0 multivitamin Tablet 1 tab PO DAILY RF: 0 Admission Data Admit Date/Time: 06/17/21 23:37 Attending Provider: Zach Villela Admit Provider: Roselia Russ Primary Care Provider: Curt Oquendo Other Providers: Roselia Russ
[2021-06-18] MEDS: METOPROLOL TARTRATE 25 MG TAB PO SCH ×2 (08:19→20:03)
[2021-06-18 08:28] LABS: Troponin I 1.29 ng/ml (0-0.04)
[2021-06-18] MEDS ORDERED: TELMISARTAN 40 MG TAB PO SCH ×2 (09:00→21:00)
[2021-06-18] MEDS ORDERED: dilTIAZem HCL 300 MG CAPCR PO SCH ×2 (09:00→21:00)
[2021-06-18] MEDS ORDERED: ROSUVASTATIN CALCIUM 10 MG TAB PO SCH ×2 (09:00→21:00)
[2021-06-18] MEDS ORDERED: ENOXAPARIN INJ 40 MG/0.4 ML SYR SQ SCH (09:00)
[2021-06-18] MEDS ORDERED: ASPIRIN 81 MG ECTAB PO SCH ×2 (09:00→21:00)
[2021-06-18] MEDS ORDERED: PANTOprazole 40 MG TAB PO SCH ×2 (09:00→21:00)
--- NOTE | 2021-06-18 09:04 | Hospitalist Progress Note ---
Date of Service June 18, 2021 Assessment & Plan (1) Chest pain syndrome: Plan: David Smith is a pleasant 71yo male with history of HTN, HLD, and prior CVA who was admitted to [facility] on 06/17 for chest pain. NSTEMI Typical cardiac chest pain that occurred at rest, with uptrending Troponin to ~[address]/T changes on EKG. Suspect NSTEMI. - TTE unremarkable - A1c 5.9, LDL 79 - s/p Aspirin 324mg x1, continue with 81mg PO daily - started Heparin bolus + gtt - continue home Rosuvastatin 10mg PO daily - change Nebivolol to Metoprolol tartrate 25mg PO BID per hospital formulary - continue home Telmisartan 80g PO daily - Cardiology consulted - patient scheduled for cardiac catheterization later this afternoon - PRN Nitro and PRN EKG for chest pain HTN; HLD; prior CVA - continue Aspirin/BB/statin as stated above - continue home Diltiazem 300mg PO daily GERD - continue home Protonix 40mg PO daily FEN/GI: NPO for cath DVT Prophylaxis: Heparin gtt Code Status: full code Disposition: med/tele (2) Carotid artery stenosis: (3) CVA (cerebral vascular accident): (4) HTN (hypertension): (5) Dyslipidemia: (6) Acid reflux disease with ulcer: (7) CKD (chronic kidney disease): (8) Sensorineural hearing loss of both ears: Admission and Anticipated Discharge Date Admission Date: June 17, 2021 Supervising Physician Co-Signing Physician Notes I personally examined the patient and verified all valdivia points of history and exam, discussed case, and agree with decision making with Dr De La Cruz no further chest pain. discussed plans. expressed understanding. cardiology came in and rec'd cath - pt agreed vitals noted nad heent nc at mmm breathing unlabored no accessory muscles good effort skin no rashes no pallor or icterus neuro no focal deficits NSTEMI/unstable angina - for cath. secondary risk reduction. otherwise as above Subjective Patient reports that he had acute-onset substernal chest pain/pressure yesterday at 7pm that lasted ~2 hours and ultimately resolved upon arrival at ED. Reports associated left arm numbness and denies syncope/near-syncope, diaphoresis, SOB, N/V. Reports that symptoms have not recurred since being in the hospital. Denies family history of NV. Denies smoking history. Denies fever/chills, chest pain, SOB, N/V, abdominal pain, diarrhea, rash. Review of Systems Review of Systems: All systems reviewed & are unremarkable except as noted in HPI & below Physical Exam Physical Exam: General: A&Ox3. NAD. Cooperative. HEENT: Atraumatic, normocephalic. Pulm: CTAB A&P. -wheezes, -rales, -rhonchi. Symmetrical chest rise. No increase work of breathing. No respiratory distress. Cardiac: RRR, -mrg. Radial pulses intact and symmetrical. Abdominal: soft, non-tender, non-distended, BS x 4 Skin: warm, dry, no rash Results & Data Results & Data ([facility]) Vital Signs (Past 12 Hours) Vital Signs Temp Pulse Pulse Pulse Resp BP BP 06/18/21 07:17 36.6 C 64 20 123/64 06/18/21 02:54 36.8 C 60 20 127/68 06/18/21 00:28 36.8 C 81 18 158/82 H 06/18/21 00:15 36.8 C 81 18 158/82 H 06/17/21 23:57 74 12 149/87 H 06/17/21 23:00 74 16 06/17/21 21:37 77 12 06/17/21 21:06 36.3 C L 96 H 20 193/119 H BP Pulse Ox 06/18/21 07:17 95 06/18/21 02:54 95 06/18/21 00:28 94 06/18/21 00:15 94 06/17/21 23:57 94 06/17/21 23:00 167/100 H 95 06/17/21 21:37 95 06/17/21 21:06 97 Resident Activity Tracking Resident Involvement: Resident Care Provided Care Provided: Adult Hospital Medicine (1) HTN (hypertension) Hypertension type: essential hypertension Qualified Code(s): I10 - Essential (primary) hypertension (2) CVA (cerebral vascular accident) CVA mechanism: unspecified Qualified Code(s): I63.9 - Cerebral infarction, unspecified
[2021-06-18] MEDS ORDERED: Heparin IV Adult Wt-Based Standard WITH Bolus Protocol IV SCH (09:15)
--- NOTE | 2021-06-18 09:47 | XCELERA ---
[id number]
[2021-06-18 10:17] LABS: Estimated Average Glucose 123 mg/dl; Hemoglobin A1C 5.9 % (4.5-5.6)
[2021-06-18] MEDS ORDERED: HEPARIN SOD (PORCINE) 1000 UNIT/ML IV ONE (10:30)
[2021-06-18] MEDS ORDERED: HEPARIN SODIUM/DEXTROSE 25,000 UNITS/500 ML BAG IV SCH (10:30)
[2021-06-18 10:32] LABS: Basophils # (auto) 0.01 K/uL (0-0.2); Basophils % (auto) 0.1 %; Eosinophils # (auto) 0.22 K/uL (0-0.5); Eosinophils % (auto) 1.8 %; Hematocrit (blood only) 40.8 % (42-52); Hemoglobin 14.3 g/dL (14.0-18.0); Immature Granulocytes # (auto) 0.03 K/uL (0.00-0.02); Immature Granulocytes % (auto) 0.2 %; Lymphocytes # (auto) 1.65 K/uL (1.2-3.4); Lymphocytes % (auto) 13.2 %; Mean Corpuscular Hemoglobin 30.5 pg (25-34); Mean Platelet Volume 9.7 fL (7.4-10.4); Monocytes # (auto) 1.19 K/uL (0.11-0.59); Monocytes % (auto) 9.5 %; Neutrophils # (auto) 9.37 K/uL (1.4-6.5); Neutrophils % (auto) 75.2 %; Platelet Count 226 K/uL (130-400); RDW Coefficient of Variation 13.6 % (11.5-14.5); Red Blood Count 4.69 M/uL (4.7-6.1); White Blood Count 12.47 K/uL (4.8-10.8)
[2021-06-18 10:43] LABS: Partial Thromboplastin Time 28.3 Seconds (21.0-31.0); Prothrombin Time 10.9 Seconds (9.0-12.0)
--- NOTE | 2021-06-18 11:55 | Cardiology Consultation ---
Date of Consultation June 18, 2021 Assessment & Plan (1) Chest pain syndrome: -symptoms are concerning for angina pectoris. -symptoms resolved sublingual nitroglycerin and aspirin. -troponin increased to 1.29. -agree with heparin drip. -continue outpatient medications. -proceed with cardiac catheterization this afternoon. (2) HTN (hypertension): -adequate control on current regimen. (3) Dyslipidemia: -continue rosuvastatin. History of Present Illness Attending Physician: Zach Villela DO History of Present Illness Mr. Smith is a 71-year-old male admitted yesterday with a chest pain syndrome and elevated troponin I level. This consultation was ordered to assist in his cardiac management. The patient was in his usual state health until approximately 7:00 p.m. last evening when he had the abrupt onset of left-sided chest pressure with associated shortness of breath. He noted the discomfort to radiate down the left upper extremity. There was no associated nausea, vomiting, or diaphoresis. His symptoms persisted until approximately 9:00 p.m. when he opted to proceed to the emergency room for further evaluation. On arrival here, patient was significantly hypertensive with a blood pressure of 190/120. He was given aspirin and sublingual nitroglycerin and his discomfort resolved. His initial troponin level was normal at 0.03, however, has now increased to 1.29. The patient has never known of a cardiac event. He has never a stress test or cardiac catheterization. 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 He has never experienced exertional angina pectoris or limiting dyspnea. He further denies syncope, presyncope, PND, orthopnea, palpitations, lower extremity edema, and claudication. He has received 3 COVID vaccinations. Currently, he is resting comfortably in bed without complaints. Past medical and surgical history 1. Hypertension 2. Mild LVH 3. Hypercholesterolemia 4. Hyperglycemia 5. Chronic renal failure 6. GERD 7. 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 Cerebrovascular disease-less than 50% stenoses bilateral carotid arteries 9. Nephrolithiasis 10. Hearing deficit 11. Rate inguinal hernia repair-2014 12. Right THR Social history and lives with his Retired, but works on a horse farm currently No tobacco Occasional alcohol Family history Mother in her 50s from a carcinoma Father in his 90s with dementia Siblings are healthy No early coronary artery disease Review of systems A 10 review systems was undertaken and negative except for that described above. Allergies Allergy/AdvReac Type Severity Reaction Status Date / Time No Known Drug Allergies Allergy Verified 06/17/21 22:51 Home Medications Medication Instructions Recorded Confirmed Type amoxicillin 500 mg tablet 2,000 mg PO ONCE #4 tab 09/13/20 06/17/21 Rx aspirin 81 mg tablet,delayed 81 mg PO DAILY tab 04/03/21 06/17/21 History release (Adult Low Dose Aspirin) diltiazem HCl 300 mg 300 mg PO DAILY cap 04/03/21 06/17/21 History capsule,extended release 24 hr (Cartia XT) meclizine 12.5 mg tablet 12.5 mg PO DAILY PRN tab 04/03/21 06/17/21 History multivitamin 1 tab PO DAILY tab 04/03/21 06/17/21 History pantoprazole 40 mg tablet,delayed 40 mg PO ONCE tab 04/03/21 06/17/21 History release telmisartan 80 mg tablet 80 mg PO DAILY tab 04/03/21 06/17/21 History rosuvastatin 10 mg tablet 10 mg PO DAILY #90 tab 05/09/21 06/17/21 Rx nebivolol 5 mg tablet (Bystolic) 5 mg PO DAILY #90 tab 06/12/21 06/17/21 Rx Patient History Medical History Acid reflux disease with ulcer CKD (chronic kidney disease) COVID-19 vaccine series started Dehydration Dyslipidemia HTN (hypertension) Hyperglycemia Low HDL (under 40) LVH (left ventricular hypertrophy) Metabolic syndrome Sensorineural hearing loss of both ears Vertigo Surgical History H/O inguinal hernia repair History of arthroplasty of right hip Family History Mother Cancer Sister Breast cancer Other No family history of adverse response to anesthesia No family history of bleeding disorder Denies family history of Ovarian cancer Prostate cancer Myocardial infarction Lung cancer Colorectal cancer Stroke Social History Smoking Status: Never smoker Second Hand Exposure: No; Hx Alcohol Use: Yes (socially) Alcohol type: beer and wine Hx Substance Use: No Preferred Language: Turkmen Communication Ability: Effective Visual Impairment: No Limitations Hearing Ability: Normal Marine Oiler Required: No Beliefs That Will Affect Care: None marital status: Current Living Situation: Spouse current occupational status: retired How many Children do You have: 2 Feels Safe at Home: Yes Childhood Exposure to Second-Hand Smoke: No caffeine: Yes Dental Care, Regularly: Yes Physical Activity Frequency: Daily Seatbelt Use: always Sunscreen Use: Yes Assistive Devices: None Physical Exam Physical Exam: In general this is a well-developed well-nourished white male in no acute distress. HEENT exam is negative. Neck is supple with full carotid upstrokes. There are no carotid bruits. Jugular venous pressure is flat at 90. There is no thyromegaly. Cardiovascular exam reveals a regular rhythm with a normal S1 and S2. No S3, S4, or murmurs are noted. Lungs are clear without rales, rhonchi, or wheezes. Abdomen is soft and nontender without bruits. Extremities reveal intact radial artery and posterior tibial pulses bilaterally. There is no peripheral edema. Results & Data ([facility]) Vital Signs (Past 12 Hours) Vital Signs Temp Pulse Pulse Resp BP BP Pulse Ox 06/18/21 10:31 56 L 06/18/21 07:17 36.6 C 64 20 123/64 95 06/18/21 02:54 36.8 C 60 20 127/68 95 06/18/21 00:28 36.8 C 81 18 158/82 H 94 06/18/21 00:15 36.8 C 81 18 158/82 H 94 06/17/21 23:57 74 12 149/87 H 94 PG Care Time/CCT Total # of Minutes Spent Total Time Spent with Patient: Total time spent is greater than 50% in coordination of care (as documented) at patient's floor/unit and/or counseling patient: Coding Level of Care Code 58499 Initial Inpt Care Lvl 3 Diagnoses Chest pain syndrome R07.9 HTN (hypertension) I10 Hypertension type: essential hypertension Dyslipidemia E78.5 (1) HTN (hypertension) Hypertension type: essential hypertension Qualified Code(s): I10 - Essential (primary) hypertension
--- NOTE | 2021-06-18 12:22 | Electrocardiogram Report ---
Test Reason : Blood Pressure : / mmHG Vent. Rate : 085 BPM Atrial Rate : 085 BPM P-R Int : 164 ms QRS Dur : 096 ms QT Int : 396 ms P-R-T Axes : 042 -24 037 degrees QTc Int : 471 ms Normal sinus rhythm RSR' or QR pattern in V1 suggests right ventricular conduction delay Borderline ECG When compared with ECG of 25-MAY-2020 07:57, No significant change was found Confirmed by Kip Ramos ([id number]) on 06/18/2021 12:22:32 PM Referred By: REFERRED SELF Confirmed By:Kip Ramos
--- NOTE | 2021-06-18 12:38 | Electrocardiogram Report ---
Test Reason : Blood Pressure : / mmHG Vent. Rate : 055 BPM Atrial Rate : 055 BPM P-R Int : 180 ms QRS Dur : 096 ms QT Int : 454 ms P-R-T Axes : 063 -17 000 degrees QTc Int : 434 ms Sinus bradycardia Otherwise normal ECG When compared with ECG of 17-JUN-2021 21:17, (unconfirmed) Vent. rate has decreased BY 30 BPM Confirmed by Kip Ramos ([id number]) on 06/18/2021 12:38:03 PM Referred By: REFERRED SELF Confirmed By:Kip Ramos
[2021-06-18] MEDS ORDERED: HEPARIN (PORCINE) 1000 UNIT/ML 10 ML (CATH LAB USE ONLY) ONE (13:40)
[2021-06-18] MEDS ORDERED: niCARdipine HCL INJ 2.5 MG/ML 10 ML AMP ONE (13:40)
[2021-06-18] MEDS ORDERED: fentaNYL citrate 100 MCG/2 ML VIAL ONE ×2 (13:41→15:10)
[2021-06-18] MEDS ORDERED: NITROGLYCERIN/D5W 100MCG/ML 20ML SYR ONE (13:41)
[2021-06-18] MEDS ORDERED: MIDAZOLAM HCL 1 MG/ML 2ML VIAL ONE ×2 (13:41→15:10)
[2021-06-18] MEDS ORDERED: LIDOCAINE 1% LOCAL 20 ML VIAL ONE ×2 (13:48→13:50)
--- NOTE | 2021-06-18 14:26 | Pre Anesthesia Assessment ---
Date of Service June 18, 2021 Pre Sedation Assessment Vital Signs Temp Pulse Pulse Pulse Resp BP BP 06/18/21 13:36 69 16 121/84 06/18/21 11:59 98.1 F 68 16 156/82 H 06/18/21 10:31 56 L 06/18/21 07:17 97.9 F 64 20 123/64 06/18/21 02:54 98.2 F 60 20 127/68 06/18/21 00:28 98.2 F 81 18 158/82 H 06/18/21 00:15 98.2 F 81 18 158/82 H 06/17/21 23:57 74 12 149/87 H 06/17/21 23:00 74 16 06/17/21 21:37 77 12 06/17/21 21:06 97.3 F L 96 H 20 193/119 H BP Pulse Ox 06/18/21 13:36 96 06/18/21 11:59 94 06/18/21 10:31 06/18/21 07:17 95 06/18/21 02:54 95 06/18/21 00:28 94 06/18/21 00:15 94 06/17/21 23:57 94 06/17/21 23:00 167/100 H 95 06/17/21 21:37 95 06/17/21 21:06 97 Cardiovascular RRR, no murmur, no edema Respiratory normal respiratory effort, lungs clear to auscultation Pre-Sedation Airway Assessment Smoking Status: Never smoker Hx Sleep Apnea: No (Pt unsure.) Hx Difficult Intubation: No Short, Thick Neck: No Thyromental Distance: > or= 3.5 Finger Breadths Oral Cavity: + Capped Teeth Mallampati Class: II ASA: ASA2 NPO Status Date of Last Intake of Fluids: 06/18/21 Time of Last Intake of Fluids: 07:00 Date of Last Intake of Solid Food: 06/18/21 Time of Last Intake of Solid Foods: 07:00 Last Intake of Solids Comment: A few bites of egg Procedure Planning Contraindications for Sedation: none Current Medications Reviewed: Yes Notes The planned sedation has been discussed with the patient. Informed Consent was obtained. I have identified the patient, determined the appropriateness of sedation and have assessed the patient immediately prior to the procedure. All medicine(s) and interventions are by my order.
[2021-06-18] MEDS ORDERED: CLOPIDOGREL BISULFATE 300 MG TAB ONE (15:46)
--- NOTE | 2021-06-18 16:19 | Billing Data ---
Date of Service June 18, 2021 Coding Level of Care Code 27603 Subseq Hosp Care Lvl 3
--- NOTE | 2021-06-18 17:19 | Post Anesthesia Assessment ---
Date of Service June 18, 2021 Post Sedation Assessment Vital Signs Temp Pulse Pulse Pulse Resp BP BP 06/18/21 16:41 97.9 F 72 18 164/90 H 06/18/21 16:15 66 18 124/68 06/18/21 16:01 61 18 128/77 06/18/21 13:36 69 16 121/84 06/18/21 11:59 98.1 F 68 16 156/82 H 06/18/21 10:31 56 L 06/18/21 07:17 97.9 F 64 20 123/64 06/18/21 02:54 98.2 F 60 20 127/68 06/18/21 00:28 98.2 F 81 18 158/82 H 06/18/21 00:15 98.2 F 81 18 158/82 H 06/17/21 23:57 74 12 149/87 H 06/17/21 23:00 74 16 06/17/21 21:37 77 12 06/17/21 21:06 97.3 F L 96 H 20 193/119 H BP Pulse Ox 06/18/21 16:41 96 06/18/21 16:15 95 06/18/21 16:01 91 06/18/21 13:36 96 06/18/21 11:59 94 06/18/21 10:31 06/18/21 07:17 95 06/18/21 02:54 95 06/18/21 00:28 94 06/18/21 00:15 94 06/17/21 23:57 94 06/17/21 23:00 167/100 H 95 06/17/21 21:37 95 06/17/21 21:06 97 Recovery Score Activity: Moves 4 extremities Respiration: Deep Breath/Cough Circulation: +/-20% PreAnes Value Consciousness: Fully Awake Oxygen Saturation: > 92% On Room Air Post Anesthesia Score: 10 Discharge Sedation Level of Care: Fast Track Phase II Post Sedation Plan On clinical assessment, the patient appears to have tolerated the sedation without complications. Patient is recovering as anticipated. Patient will continue to be monitored by nursing and may be discharged when sedation discharge criteria are met per below protocol. Upon Completions of procedure up to 15 minutes continue every 5 minute vital signs and the P.A.R. score; then discharge to a Phase I or Fast Track to Phase II per the following guidelines: * Discharge Patient to appropriate Phase II area if PAR is 8 or greater or return to pre- procedure baseline. The post - procedure orders will be as directed. * If PAR score is less than 8 or not return to pre-procedure baseline then patient will follow Phase I monitoring till PAR is reached for Phase II. The Phase I may be done in procedure room or may call to secure a Phase I area. * If naloxone or flumazenil are used for reversal, hold in Phase I for continued monitoring from when last reversal dose was given for a minimum of 60 minutes or longer pending the nurse and/or physician discretion of patient condition before discharge to Phase II. Please call the Sedation Physician to re-evaluate and complete post-note for discharge to Phase II area. Do NOT discharge from procedure sedation or Phase 1 until post- sedation evaluation note is complete by procedure /sedation MD Sedation Discharge Instructions to be given to the patient at discharge to home.
--- NOTE | 2021-06-18 17:21 | Cardiac Catheterization ---
[facility] Data: Program Officer Cardiac Status Clinical evaluation leading to the procedure CAD Presenation: Non STEMI Anginal Classification: CCS IV Heart Failure: No Cardiogenic Shock within 24 Hours: No Cardiac Arrest within 24 Hours: No Imaging Studies Past 6 Months: Yes Stress Studies Past 6 Months: No Diagnostic Physicians Name: Slade Mitchell MD Status: Elective Closure Device Percutaneous Entry Location: Radial Closure Device: Radial Band Recommendations: Medical Therapy and/or Counseling PCI Indication: PCI for high risk Non-KATTY Lesion Segment Name: proximal OM1 Culprit Artery: Yes Stenosis Prior to Rx (%): 100 Chronic Total Occlusion: No IVUS: No FFR: No Pre-Procedure TERRY Flow: 0 Previously Treated Lesion: No Lesion Complexity: Non-High/Non-C Lesion Length (mm): 18 Thrombus Present: Yes Bifurcation Lesion: No Guidewire Across Lesion: Stenosis Post-Procedure (%): 0 Post-Procedure TERRY Flow: 3 Devices(s) Deployed: Yes Yes Intraprocedure Events Significant Disection: No Perforation: No Cardiac Cath Procedure Full Procedure Date June 18, 2021 Pre-Procedure Diagnosis Pre-Procedure Diagnosis: Non STEMI AUC Score AUC Score: 8 Post-Procedure Diagnosis Post-Procedure Diagnosis: Severe CAD, Successful PCI and Normal Intracardiac Pressures Procedure(s) Performed Procedure(s) Performed: Coronary Angiography, Left Heart Cath and Drug Eluting Stent Distribution Engineer lSade Mitchell MD Art Department Head(s) Showers Estimated Blood Loss Estimated Blood Loss: 15 Medication(s) Medication(s): Clopidogrel, Diazepam, Fentanyl, Heparin, Lidocaine 1%, Nicardipine, Nitroglycerin and Versed Summary of Findings Indication: NSTEMI Access: 6 Fr right radial artery Catheters: Rubicon, EBU 3.5 guide Findings: LM -Short, normal caliber, no significant disease LAD -medium caliber, 60 to 70% mid segment disease after takeoff of D1, distal vessel without significant disease and extends to apex. Medium D1 with 30% proximal disease Circumflex -medium caliber, 40% mid segment stenosis after OM 2. Medium caliber high OM1 100% acute proximal occlusion. RCA -dominant, large caliber, 40 to 50% mid segment diffuse disease, distal RCA/R-PDA/RPLB without significant disease LVEDP -3 -- PCI -- Antithrombotic therapy: Heparin, clopidogrel Procedure: Left main cannulated with EBU 3.5 guide Oil Well Fishing Tool Operator 50 wire passed across proximal OM1 occlusion into distal vessel Proximal OM1 lesion predilated with 2.0 compliant balloon Dilated lesion stented with 2.5 x 18 mm Harman drug-eluting stent Stent post-dilated with 2.5 noncompliant balloon IC vasodilators administered for spasm Noted to have flow-limiting distal edge dissection Second REINIER (2.25 x 15 mm Harman) overlapped with distal aspect of initial stent Stent postdilated with stent balloon Post procedure TERRY 3 flow, stents well expanded with minimal residual stenosis and no apparent cardiac complications. Arterial Closure: TR band Summary: 1. Multivessel coronary artery disease Acute 100% proximal OM1 occlusion -60 to 70% mid LAD stenosis after D1 40 to 50% mid RCA 40% mid circumflex 2. Normal intracardiac filling pressure 3. Successful PCI of proximal to mid OM1 with 2 overlapping drug-eluting stents (2.5 x 18, 2.25 x 15 Harman). Recommendations: To PCU for continued monitoring Loaded with clopidogrel 600 mg in Program Officer Continue dual-antiplatelet therapy for at least 1 year Continue statin, and ASCVD risk factor modification Consult cardiac Rehab Medically manage remaining nonculprit artery coronary artery disease. If additional/refractory symptoms in the future could consider FFR/PCI of mid LAD. Hemodynamics Rest Ao:: 114/68/90 Final Ao: 91/51/68 LV: 113/3 Recommendations Recommendations: Medical Therapy and/or Counseling Specimens Specimens: None Radiation Exposure (mGy) 3333 Contrast (mls) 120 Fluids (cc crystalloids) Fluids (cc crystalloids): 120 Drains Drains: none Anesthesia moderate [id number] Procedural Complication(s) None Disposition PCU I attest to the content of the Intraoperative Record and any orders documented therein. Any exceptions are noted below. [facility] Card Cath Procedure Codes Cardiac Catheterization Procedure 1: Cardiovascular Cath Procedures: 02767 Coronaries and LHC (+/-LV) Moderate Sedation Procedure 1: Sedation/Anesthesia: 16705 Mod Sedation by the same physician;Init15 Min Child Age 5 & Up Procedure 2: Sedation/Anesthesia: 18952 Mod Sedation by the same physician; Ea [id number] Minutes Stenting Procedure 1: Cardiovascular Stent Procedures: 92004 Perc transluminal revascularization of acute sub/total occl, aMI PG Care Time/CCT Total # of Minutes Spent Total Time Spent with Patient: Total time spent is greater than 50% in coordination of care (as documented) at patient's floor/unit and/or counseling patient:
[2021-06-18] MEDS ORDERED: SODIUM CHLORIDE 0.9% 1000ML 1,000 ML IV SCH (18:00)
[2021-06-19 06:28] LABS: Hematocrit (blood only) 42.1 % (42-52); Hemoglobin 14.5 g/dL (14.0-18.0); Mean Corpuscular Hemoglobin 30.4 pg (25-34); Mean Corpuscular Hgb Conc 34.4 g/dL (32-36); Mean Corpuscular Volume 88.3 fL (80-100); Platelet Count 218 K/uL (130-400); RDW Coefficient of Variation 13.5 % (11.5-14.5); RDW Standard Deviation 44.2 fL (36.4-46.3); Red Blood Count 4.77 M/uL (4.7-6.1); White Blood Count 9.29 K/uL (4.8-10.8)
[2021-06-19 06:38] LABS: Partial Thromboplastin Time 28.3 Seconds (21.0-31.0)
--- NOTE | 2021-06-19 06:46 | Discharge Summary ---
Date of Service June 19, 2021 Admission HPI Per Admitting Provider Chief Complaint: chest pain Primary Care Provider: Curt Oquendo MD David Smith is a pleasant 71yo male with history of HTN, HLP, prior CVA, presenting with acute chest pain. Patient was in his usual state of health this evening. He was at home resting when he had acute onset of left chest discomfort. Discomfort 6/10 in severity, pressure with radiation and numbness down the left arm. No associated diap horesis/nausea/SOB/dizziness/palpitations. He did have a headache as well. Patient called EMS. Upon arrival to the ER patient hypertensive at 193/119. He was administered Nitro 0.4mg x 1 and had nitro paste placed. ASA 324mg. Chest pain relieved Patient presently feels well. Chest pain has resolved. Still with mild WEBSTER. Reports his blood pressure is very well controlled typically. His presenting pressure of 193/119 is very atypical. Patient is active and independent. He trains horses 3 days/week. No CP/SOB that limits activity. He denies recent injury or change in activity. He has no known cardiac disease. He has had a CVA and has <50% atherosclerosis of carotids. No prior catheterizations. He had a stress test many years ago. Prior echo 05/25/20 - normal EF of 55-60%, no WMA, mild LVH ER Course: Nitro 0.4mg, Nitro paste x 1 inch, ASA 324mg Admission Exam Per Admitting Provider General: patient resting comfortably, NAD, non-toxic in appearance, AA&O x 4 Skin: warm, dry, intact, no rashes or lesions HEENT: NC/AT, PERRL, EOMI, anicteric sclera, conjunctiva without injection, external ear normal to inspection and nontender, nares patent, moist mucus membranes, dentition intact, no oropharyngeal lesions, neck supple, trachea midline, no LAD, no thyromegaly, no JVD Heart: +S1/S2, regular, no m/r/g, no reproducible chest wall pain Lungs: equal air entry bilaterally, no rales/rhonchi/wheezes Abd: +BS, soft, NT/ND, no masses/organomegaly/ascites Ext: warm, 2+ pulses in UE/LE bilaterally, no clubbing/cyanosis or edema Neuro: nonfocal, patient AA&O x 4, speech intact, no facial droop, moving all extremities on command with equal strength 5/5 Principal Diagnosis NSTEMI Discharge Exam General: A&Ox3. NAD. Cooperative. HEENT: Atraumatic, normocephalic. Pulm: CTAB A&P. -wheezes, -rales, -rhonchi. Symmetrical chest rise. No increase work of breathing. No respiratory distress. Cardiac: RRR, -mrg. Radial pulses intact and symmetrical. Abdominal: soft, non-tender, non-distended, BS x 4 Skin: warm, dry, no rash Discharge Data Allergies Allergy/AdvReac Type Severity Reaction Status Date / Time No Known Drug Allergies Allergy Verified 06/17/21 22:51 Consultations 06/17/21 22:35 ED Decision to Admit Stat 06/18/21 08:43 Consult Cardiology Routine 06/18/21 18:03 Consult Cardiac Rehabilitation Routine Procedures Performed Operation Date: 06/18/21 12:30 Actual Procedures p Cineradiography w/Routine Exam - Olu Mitchell MD p Drug Eluting Stent SGl Vessel - Olu Mitchell MD s Cath, Left with Cors and Vent - Olu Mitchell MD Ordered Studies 06/18/21 14:19 CL Cath Imgs for PACS use only Routine Hospital Course (1) Chest pain syndrome: David Smith is a pleasant 71yo male with history of HTN, HLD, and prior CVA who was admitted to [facility] from 06/17 - 06/19 for NSTEMI - had PCI on 06/18 with REINIER x2 to OM1. NSTEMI Typical cardiac chest pain that occurred at rest, with uptrending Troponin to ~[address]/T changes on EKG. PCI with multi-vessel CAD including 100% occlusion of OM1 - REINIER x2 to mid-OM1. - TTE unremarkable - A1c 5.9, LDL 79 - continue with 81mg PO daily - received Heparin gtt and Plavix load before PCI - continue with Plavix 75mg PO daily - continue home Rosuvastatin 10mg PO daily - change Nebivolol to Metoprolol tartrate 25mg PO BID - continue home Telmisartan 80g PO daily - f/u with Cardiac rehab and Cardiology after discharge - f/u with PCP HTN; HLD; prior CVA - continue Aspirin/BB/statin as stated above - continue home Diltiazem 300mg PO daily GERD - continue home Protonix 40mg PO daily (2) Carotid artery stenosis: (3) CVA (cerebral vascular accident): (4) HTN (hypertension): (5) Dyslipidemia: (6) Acid reflux disease with ulcer: (7) CKD (chronic kidney disease): (8) Sensorineural hearing loss of both ears: Total Time Total Time Spent Total Time Spent (In Minutes): >30 minutes Discharge Plan Discharge Items Patient Disposition: Home - Self-Care Reason For Visit: CHEST PAIN Discharge Diagnosis: NSTEMI Activity: Per Instructions section Non-emergency contact: Primary Care Provider and Director Employee Safety And Health Call non-emergency contact if: you have any medication questions and your symptoms worsen Follow-up/Referrals: Curt Oquendo MD [Primary Care Provider] - (please schedule f/u within 1 week) Kip Ramos MD [Physician] - (please schedule f/u in 2-4 weeks) Diet: Regular Addtl Attending Provider Instructions: You were admitted to [facility] from 06/17 - 06/19 for chest pain due to a myocardial infarction (heart attack). We consulted our Director Employee Safety And Health, who opted to do a cardiac catheterization. Two drug-eluting stents were placed in one of the smaller cardiac arteries called OM1 (obtuse marginal artery), which was completely blocked off by a clot. You tolerated the procedure well, without further chest pain. You will be discharged on 06/19. You will take the following medications to help prevent further heart attacks, and to minimize adverse sequelae from this recent heart attack: 1. Plavix, once per day, for at least one year 2. Nebivolol will be changed to Metoprolol (also a beta-lynn) - twice per day 3. Continue current doses of Aspirin, Telmisartan, and Rosuvastatin You will need to attend cardiac rehab sessions in order to gradually and safely return to regular physical activities. You should follow up with your PCP and with your Director Employee Safety And Health. We hope you continue to feel better. It was a pleasure to help provide your care while you were hospitalized. Pending Studies at Discharge: No Stand-Alone Forms: My [facility], Smoking Cessation Medications and DC Order Prescriptions: New clopidogrel 75 mg Tablet 75 mg PO QAM Qty: 30 RF: 3 metoprolol tartrate 25 mg tablet 25 mg PO BID Qty: 60 RF: 1 Continued amoxicillin 500 mg tablet 2,000 mg PO ONCE Qty: 4 RF: 2 rosuvastatin 10 mg tablet 10 mg PO DAILY Qty: 90 RF: 3 diltiazem HCl [Cartia XT] 300 mg capsule,extended release 24hr 300 mg PO DAILY RF: 0 meclizine 12.5 mg tablet 12.5 mg PO DAILY PRN (Reason: Vertigo) RF: 0 pantoprazole 40 mg tablet,delayed release (DR/EC) 40 mg PO ONCE RF: 0 telmisartan 80 mg tablet 80 mg PO DAILY RF: 0 aspirin [Adult Low Dose Aspirin] 81 mg tablet,delayed release (DR/EC) 81 mg PO DAILY RF: 0 multivitamin Tablet 1 tab PO DAILY RF: 0 Discontinued nebivolol [Bystolic] 5 mg tablet 5 mg PO DAILY Qty: 90 RF: 2 Discharge Orders: Discharge Order (Routine); Ordered 06/19/21 Ordered By: Van De La Cruz Admission Data Admit Date/Time: 06/18/21 16:19 Attending Provider: Zach Villela Admit Provider: Roselia Russ Primary Care Provider: Curt Oquendo Other Providers: Roselia Russ ; Kip Ramos Other Interventions: Discharge Summary Assessment (RN) Last Done: 06/19/21 08:53 Supervising Physician Co-Signing Physician Notes I personally examined the patient and verified all valdivia points of history and exam, discussed case, and agree with decision making with Dr De La Cruz feeling better feels up to going home no new complaints. discussed medds and lifestyle extensively vitals noted nad heent nc at mmm breathing unlabored no accessory muscles good effort skin no rashes no pallor or icterus neuro no focal deficits NSTEMI/unstable angina- CAD. s/p cath, stenting. med management, lifestyle. stable for home. otherwise as above Resident Activity Tracking Resident Involvement: Resident Care Provided Care Provided: Adult Hospital Medicine
[2021-06-19 06:57] LABS: BUN Creatinine Ratio 14.9 (10-20); Creatinine Clr Calc Pharmacy 63.4 ml/min; Est GFR (African American) 74.1 ml/min; Est GFR (Non-African American) 63.9 ml/min; Potassium 3.8 mmol/L (3.5-5.1)
[2021-06-19] MEDS: METOPROLOL TARTRATE 25 MG TAB PO SCH (08:11)
[2021-06-19] MEDS ORDERED: CLOPIDOGREL BISULFATE 75 MG TAB PO SCH (09:00)
--- NOTE | 2021-06-19 10:52 | Cardiology Progress Note ---
Date of Service June 19, 2021 Assessment & Plan (1) CAD (coronary artery disease): Plan: -suffered a non ST elevation [place] at time of admission. -troponin peaked at 3.42. -Harman REINIER x2 placed in OM1 (culprit lesion). -60-70% mid LAD, 30% D1 -40% and LCx. -40% mid RCA. -continue metoprolol tartrate, diltiazem, telmisartan, rosuvastatin, aspirin, and clopidogrel. -stable for hospital discharge. -follow-up with me in 1-2 weeks. (2) HTN (hypertension): Plan: -adequate control on current regimen. (3) Dyslipidemia: Plan: -continue rosuvastatin. Admission and Anticipated Discharge Date Admission Date: June 18, 2021 Subjective The patient is resting comfortably at the bedside without complaints of chest pain or dyspnea. Anxious for hospital discharge. Physical Exam Physical Exam: In general this is a well-developed well-nourished white male in no acute distress. HEENT exam is negative. Neck is supple with full carotid upstrokes. There are no carotid bruits. Jugular venous pressure is flat at 90. There is no thyromegaly. Cardiovascular exam reveals a regular rhythm with a normal S1 and S2. No S3, S4, or murmurs are noted. Lungs are clear without rales, rhonchi, or wheezes. Abdomen is soft and nontender without bruits. Extremities reveal intact radial artery pulses bilaterally. Dressing over the right wrist. There is no peripheral edema. Results & Data ([facility]) Vital Signs (Past 12 Hours) Vital Signs Temp Pulse Pulse Resp BP BP Pulse Ox 06/19/21 08:53 36.8 C 84 79 20 163/81 H 146/84 H 98 06/19/21 07:33 36.8 C 79 20 163/81 H 98 06/19/21 03:56 36.8 C 69 18 116/71 95 06/18/21 23:23 36.8 C 73 18 146/84 H 92 Diagnostic Findings town justice is benign. PG Care Time/CCT Total # of Minutes Spent Total Time Spent with Patient: Total time spent is greater than 50% in coordination of care (as documented) at patient's floor/unit and/or counseling patient: Coding Level of Care Code 82962 Subseq Hosp Care Lvl 3 Diagnoses HTN (hypertension) I10 Hypertension type: essential hypertension Dyslipidemia E78.5 CAD (coronary artery disease) I25.10 (1) HTN (hypertension) Hypertension type: essential hypertension Qualified Code(s): I10 - Essential (primary) hypertension
--- NOTE | 2021-06-19 11:16 | Electrocardiogram Report ---
Test Reason : Blood Pressure : / mmHG Vent. Rate : 067 BPM Atrial Rate : 067 BPM P-R Int : 162 ms QRS Dur : 094 ms QT Int : 438 ms P-R-T Axes : 038 -16 012 degrees QTc Int : 462 ms Normal sinus rhythm Normal ECG When compared with ECG of 18-JUN-2021 09:02, No significant change was found Confirmed by Kip Ramos ([id number]) on 06/19/2021 11:16:22 AM Referred By: REFERRED SELF Confirmed By:Kip Ramos
--- NOTE | 2021-06-19 15:37 | Billing Data ---
Date of Service June 19, 2021 Coding Level of Care Code D/C DAY MANAGEMENT >30 MINS
--- NOTE | 2021-06-19 15:38 | Billing Data ---
Date of Service June 19, 2021 Coding Level of Care Code D/C DAY MANAGEMENT >30 MINS
== END 2021-06-19 09:20 | disposition home or self-care (01) | DRG 247 ==
LOC: ED 21:01 → 2N 21:01 → SUATTDRO 23:37 → 2N 23:57 → 2S 06-18 16:32
DX: Z79.899 Other long term (current) drug therapy; I21.4 Non-ST elevation (NSTEMI) myocardial infarction; I16.1 Hypertensive emergency; Z87.11 Personal history of peptic ulcer disease; Z86.73 Personal history of transient ischemic attack (TIA), and cerebral infarction without residual deficits; I12.9 Hypertensive chronic kidney disease with stage 1 through stage 4 chronic kidney disease, or unspecified chronic kidney disease; I25.110 Atherosclerotic heart disease of native coronary artery with unstable angina pectoris; Z79.82 Long term (current) use of aspirin; K21.9 Gastro-esophageal reflux disease without esophagitis; E78.5 Hyperlipidemia, unspecified; N18.9 Chronic kidney disease, unspecified